=== PATIENT | male | born 1980 | race American Indian/Alaskan Native ===

== ENCOUNTER 2018-01-31 15:24 | Emergency (ER) | payer OTHER ==
[2018-01-31 15:34] VITALS: BP 146/96; PULSE 70; TEMP 99; BMI 31.4
--- NOTE | 2018-01-31 15:36 | PDOC ---
Rapid Medical Evaluation Chief Complaint: Wound Time Seen by Provider: 01/31/18 15:32 Medical Evaluation: Allergies Allergy/AdvReac Type Severity Reaction Status Date / Time No Known Allergies Allergy Verified 01/31/18 15:31 01/31/18 15:33 pt c/o: left outer buttock abscess drained yesterday and placed on keflex which he began last night, Hx DM, doesn't check glucose, pt is a mailman Pt on brief exam: vss, no cellulitis, wound to left outer buttock moist under bandage, Pt ordered for: wound cx, bgm Pt to proceed to the ED Discharge Disposition - Diagnosis Abscess - Referrals Referrals: Donavon Schneider MD [Primary Care Provider] - - Patient Instructions - Post Discharge Activity
--- NOTE | 2018-01-31 16:21 | PDOC ---
History of Present Illness - General Chief Complaint: Wound Stated Complaint: WOUND Time Seen by Provider: 01/31/18 15:32 History Source: Patient Exam Limitations: No Limitations - History of Present Illness Initial Comments: 01/31/18 16:21 she was seen Timing/Duration: unsure Severity: mild Associated Symptoms: reports: fever/chills, headaches Past History - Travel Traveled outside of the country in the last 30 days: No Close contact w/someone who was outside of country & ill: No - Past Medical History Allergies/Adverse Reactions: Allergies Allergy/AdvReac Type Severity Reaction Status Date / Time No Known Allergies Allergy Verified 01/31/18 15:31 Home Medications: Ambulatory Orders Cephalexin Monohydrate [Keflex -] 500 mg PO BID 01/31/18 Losartan Potassium 50 mg PO DAILY 01/31/18 Metformin HCl [Glucophage] 1,000 mg PO ASDIR 01/31/18 Oxycodone HCl/Acetaminophen [Percocet 5-325 mg Tablet -] 1 - 2 tab PO Q4H PRN # 7 tablet MDD 4 01/31/18 Sulfamethoxazole/Trimethoprim [Bactrim *Ds*] 1 each PO BID #14 tablet 01/31/18 Sulfamethoxazole/Trimethoprim [Bactrim *Ds*] 1 each PO BID #14 tablet 01/31/18 COPD: No Diabetes: Yes (NIDM) HTN: Yes - Surgical History Abdominal Surgery: Yes (hernia) Appendectomy: Yes - Immunization History Immunization Up to Date: Yes - Suicide/Smoking/Psychosocial Hx Smoking History: Never smoked Have you smoked in the past 12 months: No Hx Alcohol Use: No Drug/Substance Use Hx: No Substance Use Type: None Review of Systems - Review of Systems Able to Perform ROS?: Yes Is the patient limited Japanese proficient: Yes Constitutional: Yes: Symptoms Reported, See HPI, Malaise. No: Fever HEENTM: Yes: See HPI. No: Symptoms Reported Respiratory: No: Symptoms reported Musculoskeletal: Yes: Symptoms Reported, See HPI Integumentary: Yes: Symptoms Reported, See HPI, Erythema, Lesions Neurological: No: Symptoms reported All Other Systems: Reviewed and Negative *Physical Exam - Vital Signs Last Vital Signs Temp Pulse Resp BP Pulse Ox 99.0 F 70 16 146/96 97 01/31/18 15:32 01/31/18 15:32 01/31/18 15:32 01/31/18 15:32 01/31/18 15:32 - Physical Exam General Appearance: Yes: Nourished, Appropriately Dressed, Apparent Distress, Mild Distress HEENT: positive: VIJAYA, Normal ENT Inspection, TMs Normal, Pharynx Normal Neck: positive: Supple. negative: Lymphadenopathy (R), Lymphadenopathy (L) Respiratory/Chest: positive: Lungs Clear, Normal Breath Sounds Musculoskeletal: positive: Normal Inspection Extremity: positive: Normal Capillary Refill Integumentary: positive: Pale, Other (3 cm erythema with central lesion. Unable to express any purulence/ Induration ~ with tenderness. ) Neurologic: positive: art director II-XII NML intact, Fully Oriented, Alert, Normal Mood/ Affect, Normal Response, Motor Strength 5/5 Moderate Sedation - Procedure Monitoring Vital Signs: Procedure Monitoring Vital Signs Temperature 99.0 F 01/31/18 15:32 Pulse Rate 70 01/31/18 15:32 Respiratory Rate 16 01/31/18 15:32 Blood Pressure 146/96 01/31/18 15:32 O2 Sat by Pulse Oximetry (%) 97 01/31/18 15:32 Medical Decision Making - Medical Decision Making 01/31/18 17:10 RBS; fingerstick 290. .. patient states takes metformin at this time and understands need to folllowup with PMD for re-eval of blood sugars/ and have wound check. 01/31/18 17:11 01/31/18 17:15 *DC/Admit/Observation/Transfer Diagnosis at time of Disposition: Abscess - Discharge Dispostion Disposition: HOME Condition at time of disposition: Stable Decision to Admit order: No - Referrals Referrals: Donavon Schneider MD [Primary Care Provider] - - Patient Instructions Printed Discharge Instructions: DI for Wound Infection Additional Instructions: Rest, keep area elevated. Avoid strenuous activity or exercise until wound is healed Use hot soaks to area to bring more blood to the surface and encourage drainage May change dressings as needed to keep clean - Allow water from shower to wash area thoroughly for 2-3 minutes, and pat dry upon exit of shower and replace dressing. Change his dressing daily until the wound is completely healed. May use Tylenol or Motrin for mild pain relief Use stronger medications as directed and prescribed Continue all medications as prescribed Followup with private physician in 2-3 days for wound check Return to emergency Department for worsening swelling, pain, redness, fevers as needed - Post Discharge Activity Forms/Work/School Notes: Back to Work
== END 2018-01-31 17:09 | disposition home or self-care (01) ==
LOC: JERFT 15:24
DX: L02.31 Cutaneous abscess of buttock (principal); E11.65 Type 2 diabetes mellitus with hyperglycemia; Z79.84 Long term (current) use of oral hypoglycemic drugs; I10 Essential (primary) hypertension
CPT/HCPCS: 82962; 87070; 87186; 87205; 99281-25

== ENCOUNTER 2018-02-02 10:14 | Emergency (ER) | payer OTHER ==
[2018-02-02 10:33] VITALS: BP 140/74; PULSE 88; TEMP 98.2; BMI 31.4
--- NOTE | 2018-02-02 11:07 | PDOC ---
Suture Removal/Wound Check HPI - History of Present Illness Chief Complaint: Revisit,Wound Recheck Stated Complaint: REVISIT, FOLLOW UP Time Seen by Provider: 02/02/18 10:46 History Source: Yes: Patient, Old Records Exam Limitations: Yes: No Limitations Treated at: [facility] ED Date of Last ED visit: 01/31/18 - Previous ED Treatment Antibiotics Prescribed: Yes Past History - Past Medical History Allergies/Adverse Reactions: Allergies Allergy/AdvReac Type Severity Reaction Status Date / Time No Known Allergies Allergy Verified 01/31/18 15:31 Home Medications: Ambulatory Orders Cephalexin Monohydrate [Keflex -] 500 mg PO BID 01/31/18 Losartan Potassium 50 mg PO DAILY 01/31/18 Metformin HCl [Glucophage] 1,000 mg PO ASDIR 01/31/18 Oxycodone HCl/Acetaminophen [Percocet 5-325 mg Tablet -] 1 - 2 tab PO Q4H PRN # 7 tablet MDD 4 01/31/18 Sulfamethoxazole/Trimethoprim [Bactrim *Ds*] 1 each PO BID #14 tablet 01/31/18 Sulfamethoxazole/Trimethoprim [Bactrim *Ds*] 1 each PO BID #14 tablet 01/31/18 COPD: No Diabetes: Yes (NIDM) HTN: Yes - Surgical History Abdominal Surgery: Yes (hernia) Appendectomy: Yes - Immunization History Immunization Up to Date: Yes - Suicide/Smoking/Psychosocial Hx Smoking History: Never smoked Have you smoked in the past 12 months: No Information on smoking cessation initiated: No Hx Alcohol Use: No Drug/Substance Use Hx: No Substance Use Type: None Suture Removal/Wound Check PE - Physical Exam Laceration/Wound Check Symptoms: reports: Pain, Discharge Pain Intensity: 6 Current Severity Level: None Maximum Severity Level: None Pain Localization: None Location of Laceration/Wound: left: Hip Pain Radiation: None *Review of Systems - Review of Systems Able to Perform ROS?: Yes Constitutional: No: Symptoms Reported HEENTM: No: Symptoms Reported Respiratory: No: Symptoms reported Cardiac (ROS): No: Symptoms Reported ABD/GI: No: Symptoms Reported : No: Symptoms Reported Musculoskeletal: No: Symptoms Reported Integumentary: Yes: See HPI Neurological: No: Symptoms reported Endocrine: No: Symptoms Reported Hematologic/Lymphatic: No: Symptoms Reported *Physical Exam - Vital Signs Last Vital Signs Temp Pulse Resp BP Pulse Ox 98.2 F 88 16 140/74 97 02/02/18 10:31 02/02/18 10:31 02/02/18 10:31 02/02/18 10:31 02/02/18 10:31 - Physical Exam General Appearance: Yes: Appropriately Dressed. No: Apparent Distress Respiratory/Chest: positive: Lungs Clear, Normal Breath Sounds. negative: Respiratory Distress, Accessory Muscle Use Cardiovascular: positive: Regular Rhythm, Regular Rate, S1, S2. negative: Edema , Murmur Integumentary: positive: Other (1 cm circular area of erythema with open ulcer to the center of performed. Purulent drainage able to be expressed without difficulty. Culture obtained.) Moderate Sedation - Procedure Monitoring Vital Signs: Procedure Monitoring Vital Signs Temperature 98.2 F 02/02/18 10:31 Pulse Rate 88 02/02/18 10:31 Respiratory Rate 16 02/02/18 10:31 Blood Pressure 140/74 02/02/18 10:31 O2 Sat by Pulse Oximetry (%) 97 02/02/18 10:31 Medical Decision Making - Medical Decision Making 02/02/18 11:04 A/P: 37-year-old male with history of diabetes with abscess to left hip 1 cm circular area of erythema and induration with some centimeter ulcer present to the center of lesion. No fluctuance present Purulent drainage expressed Tender to touch Patient had photographs from previous days and wound appears to be improved from previous days. Discussion with patient regarding wound healing and diabetes. Patient was encouraged to make an appointment with his primary doctor for reevaluation on Tuesday. Was explained to the patient that wound culture will take 2-3 days to have results and patient and call back on Tuesday prior to his PMD appointment for results of culture. Patient is currently taking Keflex and Bactrim for abscess. Wound culture, discharge *DC/Admit/Observation/Transfer Diagnosis at time of Disposition: Wound check, abscess - Discharge Dispostion Disposition: HOME Condition at time of disposition: Stable Decision to Admit order: No - Referrals Referrals: Donavon Schneider MD [Primary Care Provider] - - Patient Instructions Additional Instructions: Continue with all previous treatments including antibiotics and warm soaks. It is very important that she follow up with your primary doctor for tight blood sugar control and reevaluation. The wound culture results will be ready by Fox morning. Please call [phone] for culture results. Return to emergency department for any concerns. - Post Discharge Activity
--- NOTE | 2018-02-03 09:46 | PDOC ---
Patient Follow-up (Call Back) - Post ED Follow - Up Condition at time of discharge: Stable Disposition at time of original discharge: HOME Reason for Call Back: Abnwl. Microbiology (Pt presented for a wound check, wound culture grew MSSA. Pt on bactrim and keflex. no further work up is needed at this time.)
== END 2018-02-02 11:12 | disposition home or self-care (01) ==
LOC: JERFT 10:14
DX: L02.31 Cutaneous abscess of buttock (principal); E11.9 Type 2 diabetes mellitus without complications; Z79.84 Long term (current) use of oral hypoglycemic drugs; I10 Essential (primary) hypertension
CPT/HCPCS: 87070; 87186; 87205; 99281-25

== ENCOUNTER 2018-03-19 17:57 | Emergency (ER) | payer OTHER ==
[2018-03-19 18:22] VITALS: BMI 32.1
--- NOTE | 2018-03-19 18:31 | PDOC ---
History of Present Illness - General Chief Complaint: Pain Stated Complaint: COUGH, ABD MUSCLE PAIN, TESTICLE PAIN Time Seen by Provider: 03/19/18 18:02 - History of Present Illness Initial Comments: 03/19/18 18:30 37 yo M with h/o DM, GERD, HTN, appendectomy, hernia repair, who p/w LLQ abdominal pain, and left sided testicular pain. Patient reports acute onset of spasmodic, pressure-type, left lower quadrant abdominal pain beginning yesterday. Pain worse with cough, straining, lifting. patient endorses 1 month of dry non productive cough x 1 month. Also endorses one day of sharp, shooting , left testicular pain with no identifiable triggers or alleviators, now resolved. Endorses 2 weeks of intermittent soft stools, and loose stools, with absent BPR. States that 2 weeks ago he strained his abdominal musculature from heavy lifting.Denies OTC analgesia. Patient denies RINCON, wheezing, vision change, palpitations, leg pain/swelling, N/V , F,C, CP, SOB, urinary complaints, hematuria, BPR, constipation, lightheadedness, weakness, sensory changes. PMHx: as noted above Surgical: Appendectomy, Hernia repair ROS: as noted SHx: Denies Etoh, IVDA, tobacco use. Denies h/o SIT's. Sexually active with one partner. Allergies: NKDA Past History - Past Medical History Allergies/Adverse Reactions: Allergies Allergy/AdvReac Type Severity Reaction Status Date / Time No Known Allergies Allergy Verified 01/31/18 15:31 Home Medications: Ambulatory Orders Losartan Potassium 50 mg PO DAILY 01/31/18 Albuterol Sulfate Inhaler - [Ventolin Hfa Inhaler -] 2 inh PO Q6H PRN 03/19/18 Azithromycin [Zithromax -] 250 mg PO UTDICT 03/19/18 Benzonatate [Tessalon Pearls -] 100 mg PO TID PRN 03/19/18 Fluticasone Prop 0.05% Nasal [Flonase -] 1 - 2 spray NS BID PRN 03/19/18 Metformin HCl [Glucophage] 500 mg PO BID 03/19/18 COPD: No Diabetes: Yes (NIDDM NON-COMPLIANT) HTN: Yes (NON-COMPLIANT) Other medical history: ABDOMINAL HERNIAS - Surgical History Abdominal Surgery: Yes (abdominal hernia) Appendectomy: Yes - Immunization History Immunization Up to Date: Yes - Suicide/Smoking/Psychosocial Hx Smoking History: Never smoked Have you smoked in the past 12 months: No Hx Alcohol Use: Yes (OCCASIONAL) Drug/Substance Use Hx: No Substance Use Type: None Review of Systems - Review of Systems Comments:: 03/19/18 18:31 GENERAL/CONSTITUTIONAL: No fever or chills. No weakness. HEAD, EYES, EARS, NOSE AND THROAT: No change in vision. No ear pain or discharge. No sore throat. CARDIOVASCULAR: No chest pain or shortness of breath RESPIRATORY: No cough, wheezing, or hemoptysis. GASTROINTESTINAL: + Abdominal pain. No nausea, vomiting, constipation. GENITOURINARY: + left sided testicular pain. No dysuria, frequency, or change in urination. MUSCULOSKELETAL: No joint or muscle swelling or pain. No neck or back pain. SKIN: No rash NEUROLOGIC: No headache, vertigo, loss of consciousness, or change in strength/ sensation. ENDOCRINE: No increased thirst. No abnormal weight change HEMATOLOGIC/LYMPHATIC: No anemia, easy bleeding, or history of blood clots. ALLERGIC/IMMUNOLOGIC: No hives or skin allergy. *Physical Exam - Vital Signs Last Vital Signs Temp Pulse Resp BP Pulse Ox 98.0 F 78 18 128/90 97 03/19/18 17:59 03/19/18 17:59 03/19/18 17:59 03/19/18 17:59 03/19/18 17:59 - Physical Exam Comments: 03/19/18 18:31 GENERAL: Awake, alert, and fully oriented, in no acute distress HEAD: No signs of trauma, normocephalic, atraumatic EYES: PERRLA, EOMI, sclera anicteric, conjunctiva clear ENT: Hearing grossly normal, nares patent, oropharynx clear without exudates. Moist mucosa NECK: Normal ROM, supple, no lymphadenopathy, JVD, or masses LUNGS: No distress, speaks full sentences, clear to auscultation bilaterally HEART: Regular rate and rhythm, normal S1 and S2, no murmurs, rubs or gallops, peripheral pulses normal and equal bilaterally. ABDOMEN: + Left sided lower quadrant abdominal pain. Soft, portruberant, normoactive bowel sounds. No guarding, no rebound. No masses. Neg CVA ttp. GENITOURINARY: Nml appearing external genitalia. + left sided scortal/ testicular ttp diffusely. Nml cremasteric reflex. Absent skin change, lesions, inguinal lypmhadenopathy, or bulging with valsalva. Absewnt perianal skin change. EXTREMITIES : Normal inspection, Normal range of motion, no edema. No clubbing or cyanosis. SKIN: Warm, Dry, normal turgor, no rashes or lesions noted Moderate Sedation - Procedure Monitoring Vital Signs: Procedure Monitoring Vital Signs Temperature 98.0 F 03/19/18 17:59 Pulse Rate 78 03/19/18 17:59 Respiratory Rate 18 03/19/18 17:59 Blood Pressure 128/90 03/19/18 17:59 O2 Sat by Pulse Oximetry (%) 97 03/19/18 17:59 Medical Decision Making - Medical Decision Making 03/19/18 18:55 37 yo M with h/o DM, GERD, HTN, appendectomy, hernia repair, who p/w crampy LLQ abdominal pain x 1 day, and left sided testicular pain. VSS, AF, A&Ox3. + left sided scortal/testicular ttp diffusely, and LLQ abdominal ttp. Physical exam otherwise unremarkable. Will consider GI pathology (Diverticulitis, hernia, colitis), Renal ( nephrolithiaisis, renal colic, cystitis), Testicular pathology ( testicular torsion, epididymitis, orchitis), MSK related pain. ED Course: CBC, CMP, UA, Ucx. CT AP IV CON TESTICULAr/SCROTAL U/S 03/19/18 18:58 Patient VSS, pain controlled. Signed out to night team. Pending labs, imaging, dispo. *DC/Admit/Observation/Transfer Diagnosis at time of Disposition: Colicky LLQ abdominal pain, Left testicular pain - Discharge Dispostion Condition at time of disposition: Stable - Referrals Referrals: Donavon Schneider MD [Primary Care Provider] - - Patient Instructions Printed Discharge Instructions: DI for Abdominal Pain-Adult Additional Instructions: Please return to the emergency department with any new or worsening symptoms or concerns. Please follow up with your primary care physician within 72 hours. - Post Discharge Activity - Attestations Physician Attestion: 03/19/18 18:59 I attest to the information provided in this note.
[2018-03-19] MEDS ORDERED: ACETAMINOPHEN 325 MG TABLET (FP) PO ONE (18:45)
[2018-03-19] MEDS ORDERED: KETOROLAC TROMETHAMINE 15 MG/ML VIAL IVPUSH ONE (19:01)
--- NOTE | 2018-03-19 19:01 | PDOC ---
Attending Attestation - Resident Resident Name: Mayur Vickers - ED Attending Attestation I have performed the following: I have examined & evaluated the patient, The case was reviewed & discussed with the resident, I agree w/resident's findings & plan - HPI HPI: 03/19/18 18:59 37 yo M with h/o DM, GERD, HTN, appendectomy, hernia repair, who p/w LLQ abdominal pain, and left sided testicular pain. Patient reports acute onset of spasmodic, pressure-type, left lower quadrant abdominal pain beginning yesterday. exacerbated by movement, turning and straining, coughing. +loose nonblood BM lately. no n/v/d. 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 +left testicular pain, no swelling. denies recent sexual intercourse, monogamous with . +urinary frequency; no dysuria, urgency or hematuria/pain. no back pain, f/c, cp, sob, dizziness. no meds taken for pain. - Physicial Exam PE: 03/19/18 19:02 NAD, PERRL, EOMI, MMM, nl conjunctiva, anicteric; neck supple. lungs clear, RRR , abdomen soft +LLQ tenderness with guarding; no rebound. PETER x4, no focal neuro deficits. No peripheral edema. normal color for ethnicity, WWP. Male (with resident): normal external genitalia, no lesions, normal testicular lie, no scrotal or testicular edema +left testicular tenderness.. no hernia. - Medical Decision Making 03/19/18 19:01 hpi as documented, vitals wnl. Pain in LLQ. no acute distress otherwise. no fevers. DDx abdominal pain: Renal colic, ureterolithiasis. biliary colic, metabolic/ electrolyte derangements. GERD, PUD, esophageal spasm, pancreatitis, hepatitis, constipation, colitis, UTI, pyelonephritis, hernia, diverticulitis, muscle strain/abdominal rectus strain analgesia with tylenol/toradol. labs and lytes pending CT a/p to r/o diverticulitis US scrotum/testicular vs renal to r/o fluid/torsion given testicular pain on exam, kidney stone/hydro respectively.. s./o to Dr Mead pending imaging 03/19/18 19:03
[2018-03-19] MEDS ORDERED: ACETAMINOPHEN 325 MG TABLET (FP) ONE (19:14)
[2018-03-19] MEDS ORDERED: KETOROLAC TROMETHAMINE 15 MG/ML VIAL ONE (19:14)
[2018-03-19 19:16] LABS: EOS % 1.6 % (0-4.5); HEMATOCRIT 45.7 % (35.4-49); HEMOGLOBIN 15.6 GM/dl (11.7-16.9); LYMPH % 29.2 % (8-40); MCHC 34.3 g/dl (32.0-35.9); MEAN CELL VOLUME 87.5 fl (80-96); MEAN PLT VOLUME 9.6 fl (7.5-11.1); MONO % 8.1 % (3.8-10.2); NEUT % 60.1 % (42.8-82.8); PLATELET COUNT 254 K/MM3 (134-434); RBC 5.22 M/mm3 (4.00-5.60); RDW 11.9 % (11.9-15.9); WHITE BLOOD COUNT 12.6 K/mm3 (4.0-10.8)
[2018-03-19 19:17] LABS: PH,URINE 5.5 (4.5-8); URINE APPEARANCE Clear; URINE BILIRUBIN Negative (NEGATIVE); URINE COLOR Yellow; URINE GLUCOSE (UA) 2+ (NEGATIVE); URINE KETONE Trace (NEGATIVE); URINE LEUK ESTERASE Negative (NEGATIVE); URINE NITRITE Negative (NEGATIVE); URINE PROTEIN Negative (NEGATIVE); URINE UROBILINOGEN 0.2 (0.2-1.0)
[2018-03-19 19:32] LABS: ALBUMIN 4.2 g/dl (3.5-5.0); ALK PHOS 78 U/L (32-92); ANION GAP 11 MMOL/L (8-16); BILIRUBIN,TOTAL 0.5 mg/dl (0.2-1.0); BLOOD UREA NITROGEN 18 mg/dl (7-18); CALCIUM 9.5 mg/dl (8.4-10.2); CHLORIDE 99 mmol/L (98-107); CO2 25 mmol/L (22-28); CREATININE 0.9 mg/dl (0.6-1.3); GLUCOSE,RANDOM 299 mg/dl (74-106); POTASSIUM 3.8 mmol/L (3.5-5.1); SGOT/AST 39 U/L (10-42); SGPT/ALT 64 U/L (10-40); SODIUM 135 mmol/L (136-145); TOT PROT 7.4 g/dl (6.4-8.3)
[2018-03-19 19:34] LABS: URINE RBC 0-2 /hpf (0-3); URINE WBC 0-2 (0-2)
[2018-03-19] MEDS ORDERED: INSULIN REGULAR HUMAN 100 UNITS/ML *VIAL IVPUSH ONE (19:57)
[2018-03-19] MEDS ORDERED: INSULIN REGULAR HUMAN 100 UNITS/ML *VIAL ONE (19:59)
[2018-03-19 20:34] VITALS: BP 137/90; PULSE 81; TEMP 98.4
[2018-03-19] MEDS ORDERED: HEMOQUE TEST 1 EACH EACH ONE (20:44)
--- NOTE | 2018-03-19 21:33 | PDOC ---
*Physical Exam - Vital Signs Last Vital Signs Temp Pulse Resp BP Pulse Ox 98.4 F 81 18 137/90 96 03/19/18 20:31 03/19/18 20:31 03/19/18 20:31 03/19/18 20:31 03/19/18 20:31 ED Treatment Course - LABORATORY CBC & Chemistry Diagram: 03/19/18 19:00 03/19/18 19:00 - ADDITIONAL ORDERS Additional order review: Laboratory Results 03/19/18 03/19/18 19:00 19:00 Sodium 135 L Potassium 3.8 Chloride 99 Carbon Dioxide 25 Anion Gap 11 BUN 18 Creatinine 0.9 Creat Clearance w eGFR > 60 Random Glucose 299 H Calcium 9.5 Total Bilirubin 0.5 AST 39 ALT 64 H Alkaline Phosphatase 78 Total Protein 7.4 Albumin 4.2 Urine Color Yellow Urine Appearance Clear Urine pH 5.5 Ur Specific [place] 1.020 Urine Protein Negative Urine Glucose (UA) 2+ H Urine Ketones Trace Urine Blood Trace-intact H Urine Nitrite Negative Urine Bilirubin Negative Urine Urobilinogen 0.2 Ur Leukocyte Esterase Negative Urine RBC 0-2 Urine WBC 0-2 03/19/18 19:00 RBC 5.22 MCV 87.5 MCHC 34.3 RDW 11.9 MPV 9.6 Neutrophils % 60.1 Lymphocytes % 29.2 Monocytes % 8.1 Eosinophils % 1.6 Basophils % 1.0 - RADIOLOGY Radiology Studies Ordered: Category Date Time Status KIDNEY / RENAL US [US] Stat Ultrasound 03/19/18 19:15 Taken - Medications Given in the ED: ED Medications Discontinued Medications Generic Name Dose Route Start Last Admin Trade Name Freq PRN Reason Stop Dose Admin Acetaminophen 650 mg 03/19/18 18:45 03/19/18 20:03 Tylenol - PO 03/19/18 18:46 Not Given ONCE ONE Insulin Human Regular 8 units 03/19/18 19:57 03/19/18 20:00 Novolin R Vial *For Ivpush Or Iv Drip Only* IVPUSH 03/19/18 19:58 8 units ONCE ONE Administration Ketorolac Tromethamine 15 mg 03/19/18 19:01 03/19/18 19:50 Toradol Injection - IVPUSH 03/19/18 19:02 15 mg ONCE ONE Administration Progress Note - Progress Note Progress Note: Care of this patient was transferred to de from Dr. Jensen at 1900 hrs. Patient is a 37-year-old male who comes in complaining of left sided and left testicular pain. Patient has a workup that was initiated by . Workup includes labs, renal and scrotal ultrasound and abdominal CT 21:00 Patient's scrotal and renal ultrasound are negative for any acute pathology Patient's CAT scan of her nose abdomen and pelvis shows some incidental findings of some hepatic steatosis, splenomegaly of is mild small umbilical hernia, small bowel inguinal hernias otherwise no acute intra-abdominal pathology. Patient given copies of his reports and discharged home. Patient given a note for no work tomorrow and told follow-up with his primary care doctor if unable to work tomorrow *DC/Admit/Observation/Transfer Diagnosis at time of Disposition: Colicky LLQ abdominal pain, Left testicular pain - Discharge Dispostion Disposition: HOME Condition at time of disposition: Stable - Referrals Referrals: Donavon Schneider MD [Primary Care Provider] - - Patient Instructions Printed Discharge Instructions: DI for Abdominal Pain-Adult Additional Instructions: You were given copies of your workup, take the copies of your workup with you when you go see her doctor. Tylenol or Motrin as needed for the pain Return to the emergency department immediately with ANY new, persistent or worsening symptoms. Continue any medications as previously prescribed by your physician. You should follow up with your primary doctor as soon as possible regarding today's emergency department visit. . Please make sure your doctor reviews the results of your emergency evaluation. Thank you for coming to the Emergency Department today for your care. It was a pleasure to see you today. Please note that your evaluation is INCOMPLETE until you follow-up with your doctor. - Post Discharge Activity Forms/Work/School Notes: Back to Work
== END 2018-03-19 21:37 | disposition home or self-care (01) ==
LOC: FER 17:57
PROC: 3E033VG Introduction of Insulin into Peripheral Vein, Percutaneous Approach (ICD-10-PCS; principal; 2018-03-19)
PROC: 3E0333Z Introduction of Anti-inflammatory into Peripheral Vein, Percutaneous Approach (ICD-10-PCS; 2018-03-19)
DX: R10.32 Left lower quadrant pain (principal); N50.812 Left testicular pain
CPT/HCPCS: 36415; 74177-TC; 76775-TC; 76870-TC; 80053; 81003; 81015; 82962; 85025; 87086; 99285-25

== ENCOUNTER 2018-04-11 14:09 | Emergency (ER) | payer OTHER ==
[2018-04-11 14:14] VITALS: BP 157/91; PULSE 82; TEMP 99; BMI 32.1
[2018-04-11] MEDS ORDERED: SODIUM CHLORIDE 1,000 ML IV STA ×2 (15:04→15:27)
[2018-04-11 15:25] LABS: URINE APPEARANCE Clear; URINE BILIRUBIN Negative (NEGATIVE); URINE COLOR Amber; URINE GLUCOSE (UA) 2+ (NEGATIVE); URINE KETONE Negative (NEGATIVE); URINE LEUK ESTERASE Negative (NEGATIVE); URINE NITRITE Negative (NEGATIVE); URINE PROTEIN Negative (NEGATIVE); URINE UROBILINOGEN 0.2 (0.2-1.0)
[2018-04-11] MEDS ORDERED: SULFAMETHOXAZOLE/TRIMETHOPRIM 800MG/160MG D.S. TABLET PO ONE (15:27)
[2018-04-11 15:30] LABS: BASO % 0.6 % (0-2.0); EOS % 1.6 % (0-4.5); HEMATOCRIT 48.1 % (35.4-49); HEMOGLOBIN 16.3 GM/dl (11.7-16.9); LYMPH % 25.9 % (8-40); MCH 29.9 pg (25.7-33.7); MCHC 33.9 g/dl (32.0-35.9); MEAN CELL VOLUME 88.3 fl (80-96); MEAN PLT VOLUME 10.2 fl (7.5-11.1); MONO % 7.9 % (3.8-10.2); PLATELET COUNT 236 K/MM3 (134-434); RBC 5.45 M/mm3 (4.00-5.60); WHITE BLOOD COUNT 11.5 K/mm3 (4.0-10.8)
[2018-04-11 15:36] LABS: ALBUMIN 4.4 g/dl (3.4-5.0); ALK PHOS 87 U/L (45-117); ANION GAP 10 MMOL/L (8-16); BILIRUBIN,TOTAL 0.5 mg/dl (0.2-1); BLOOD UREA NITROGEN 19 mg/dl (7-18); CALCIUM 9.3 mg/dl (8.5-10); CHLORIDE 95 mmol/L (98-107); CO2 25 mmol/L (21-32); CREATININE 0.9 mg/dl (0.55-1.3); POTASSIUM 4.2 mmol/L (3.5-5.1); SGOT/AST 33 U/L (15-37); SGPT/ALT 63 U/L (13-61); SODIUM 130 mmol/L (136-145); TOT PROT 7.5 g/dl (6.4-8.2)
[2018-04-11 15:41] LABS: GLUCOSE,RANDOM 376 mg/dl (74-106)
[2018-04-11] MEDS ORDERED: SULFAMETHOXAZOLE/TRIMETHOPRIM 800MG/160MG D.S. TABLET ONE (15:44)
[2018-04-11] MEDS ORDERED: ACETAMINOPHEN INJECTION 100 ML IVPB ONE (15:47)
[2018-04-11 15:55] LABS: URINE RBC 0-2 /hpf (0-3)
--- NOTE | 2018-04-11 15:59 | PDOC ---
History of Present Illness - History of Present Illness Initial Comments: 04/11/18 16:14 The patient is a 37 year old male with a past medical history of type 2 diabetes , hypertension (on Losartan 50mg), and prior MRSA in abscess on left hip who presents to the emergency department for evaluation of lightheadedness and left hip abscess. Patient reports mild lightheadedness after eating a salad this afternoon. He also reports worsening left hip abscess which started 2 days ago. Patient reports associated symptoms of polydipsia, urinary frequency, and diffuse muscle weakness over the last 2 weeks. He states he has not been compliant with his metformin regiment and reports intermittent episodes of nausea without vomiting over the last 2 weeks. Patient states he visits the ED today due to concern for abscess developing MRSA as it has in the past. The patient denies chest pain, shortness of breath, headache, and dizziness. Denies fevers, chills, nausea, vomiting, diarrhea, and constipation. Allergies: No known allergies Social History: No reported alcohol, cigarette, or drug use. Surgical History: Appendectomy, hernia, lymphadenectomy PCP: Dr. Donavon Schneider <Glynn Dubon - Last Filed: 04/11/18 16:14> - General History Source: Patient Exam Limitations: No Limitations <Husam López - Last Filed: 04/11/18 16:36> - General Chief Complaint: Blood Sugar Problem Stated Complaint: LIGHTHEADED, POLYURIA/DIPSIA, ABSCESS Time Seen by Provider: 04/11/18 14:36 Past History <Glynn Dubon - Last Filed: 04/11/18 16:14> - Past Medical History COPD: No Diabetes: Yes HTN: Yes - Surgical History Abdominal Surgery: Yes (HERNIA) Appendectomy: Yes - Immunization History Immunization Up to Date: Yes - Suicide/Smoking/Psychosocial Hx Smoking History: Never smoked Have you smoked in the past 12 months: No Information on smoking cessation initiated: No Hx Alcohol Use: No Drug/Substance Use Hx: No Substance Use Type: None <Husam López - Last Filed: 04/11/18 16:36> - Past Medical History Allergies/Adverse Reactions: Allergies Allergy/AdvReac Type Severity Reaction Status Date / Time No Known Allergies Allergy Verified 04/11/18 14:11 Home Medications: Ambulatory Orders Losartan Potassium 50 mg PO DAILY 01/31/18 Metformin HCl [Glucophage] 1,000 mg PO HS 03/19/18 Sulfamethoxazole/Trimethoprim [Bactrim Ds -] 1 tab PO BID #14 tablet 04/11/18 Review of Systems - Review of Systems Comments:: GENERAL/CONSTITUTIONAL: No fever or chills. No weakness. HEAD, EYES, EARS, NOSE AND THROAT: No change in vision. No ear pain or discharge. No sore throat. CARDIOVASCULAR: No chest pain or shortness of breath. RESPIRATORY: No cough, wheezing, or hemoptysis. GASTROINTESTINAL: No nausea, vomiting, diarrhea or constipation. GENITOURINARY: (+)urinary frequency. No dysuria or hematuria. MUSCULOSKELETAL: (+)Left hip abscess. No joint or muscle swelling or pain. No neck or back pain. SKIN: No rash NEUROLOGIC: (+)Muscle weakness. No headache, vertigo, loss of consciousness, or change in strength/sensation. ENDOCRINE: (+)polydipsia. No abnormal weight change. HEMATOLOGIC/LYMPHATIC: No anemia, easy bleeding, or history of blood clots. ALLERGIC/IMMUNOLOGIC: No hives or skin allergy. <Glynn Dubon - Last Filed: 04/11/18 16:14> *Physical Exam - Vital Signs Last Vital Signs Temp Pulse Resp BP Pulse Ox 99 F 82 18 157/91 99 04/11/18 14:09 04/11/18 14:09 04/11/18 14:09 04/11/18 14:09 04/11/18 14:09 - Physical Exam Comments: GENERAL: Awake, alert, and fully oriented, in no acute distress HEAD: No signs of trauma EYES: PERRLA, EOMI, sclera anicteric, conjunctiva clear ENT: (+)Dry mucous membranes. NECK: Normal ROM, supple, no JVD, or masses LUNGS: Breath sounds equal, clear to auscultation bilaterally. No wheezes, and no crackles HEART: Regular rate and rhythm, normal S1 and S2, no murmurs, rubs or gallops ABDOMEN: Soft, nontender. No guarding, no rebound. No masses EXTREMITIES: Normal range of motion, no edema. No clubbing or cyanosis. No cords, erythema, or tenderness NEUROLOGICAL: Cranial nerves II through XII grossly intact. Normal speech, normal gait SKIN: (+)2x2cm erythematous,mildly tender, indurated but no fluctuance overlying the left hip. Warm, Dry. <Glnyn Dubon - Last Filed: 04/11/18 16:14> - Vital Signs Last Vital Signs Temp Pulse Resp BP Pulse Ox 99 F 82 18 157/91 99 04/11/18 14:09 04/11/18 14:09 04/11/18 14:09 04/11/18 14:09 04/11/18 14:09 <Husam López - Last Filed: 04/11/18 16:36> Moderate Sedation - Procedure Monitoring Vital Signs: Procedure Monitoring Vital Signs Temperature 99 F 04/11/18 14:09 Pulse Rate 82 04/11/18 14:09 Respiratory Rate 18 04/11/18 14:09 Blood Pressure 157/91 04/11/18 14:09 O2 Sat by Pulse Oximetry (%) 99 04/11/18 14:09 <Glynn Dubon - Last Filed: 04/11/18 16:14> - Procedure Monitoring Vital Signs: Procedure Monitoring Vital Signs Temperature 99 F 04/11/18 14:09 Pulse Rate 82 04/11/18 14:09 Respiratory Rate 18 04/11/18 14:09 Blood Pressure 157/91 04/11/18 14:09 O2 Sat by Pulse Oximetry (%) 99 04/11/18 14:09 <Husam López - Last Filed: 04/11/18 16:36> Heart Score/ECG Review #1 ECG reviewed & interpreted by me at: 16:10 04/11/18 16:13 NSR 76, no std/deny, normal axis, normal intervals, QTC 443 msec <Husam López - Last Filed: 04/11/18 16:36> ED Treatment Course - LABORATORY CBC & Chemistry Diagram: 04/11/18 15:10 04/11/18 15:10 - ADDITIONAL ORDERS Additional order review: Laboratory Results 04/11/18 04/11/18 04/11/18 15:10 15:10 15:10 Sodium 130 L Potassium 4.2 Chloride 95 L Carbon Dioxide 25 Anion Gap 10 BUN 19 H Creatinine 0.9 Creat Clearance w eGFR > 60 POC Glucometer Random Glucose 376 H* Calcium 9.3 Total Bilirubin 0.5 AST 33 ALT 63 H Alkaline Phosphatase 87 Troponin I < 0.03 Total Protein 7.5 Albumin 4.4 Urine Color Patti Urine Appearance Clear Urine pH 5.0 Ur Specific Ethel 1.015 Urine Protein Negative Urine Glucose (UA) 2+ H Urine Ketones Negative Urine Blood Trace-lysed H Urine Nitrite Negative Urine Bilirubin Negative Urine Urobilinogen 0.2 Ur Leukocyte Esterase Negative Urine RBC 0-2 04/11/18 14:38 Sodium Potassium Chloride Carbon Dioxide Anion Gap BUN Creatinine Creat Clearance w eGFR POC Glucometer 395 Random Glucose Calcium Total Bilirubin AST ALT Alkaline Phosphatase Troponin I Total Protein Albumin Urine Color Urine Appearance Urine pH Ur Specific Ethel Urine Protein Urine Glucose (UA) Urine Ketones Urine Blood Urine Nitrite Urine Bilirubin Urine Urobilinogen Ur Leukocyte Esterase Urine RBC 04/11/18 04/11/18 15:10 14:38 RBC 5.45 MCV 88.3 MCHC 33.9 RDW 12.0 MPV 10.2 Neutrophils % 64.0 Lymphocytes % 25.9 Monocytes % 7.9 Eosinophils % 1.6 Basophils % 0.6 POC Glucometer 395 - Medications Given in the ED: ED Medications Discontinued Medications Generic Name Dose Route Start Last Admin Trade Name Freq PRN Reason Stop Dose Admin Sodium Chloride 1,000 mls @ 1,000 mls/hr 04/11/18 15:04 04/11/18 15:00 Normal Saline - IV 04/11/18 16:03 1,000 mls/hr ASDIR STA Administration Trimethoprim/Sulfamethoxazole 1 each 04/11/18 15:27 04/11/18 15:47 Bactrim Ds - PO 04/11/18 15:28 1 each ONCE ONE Administration <Glynn Dubon - Last Filed: 04/11/18 16:14> - LABORATORY CBC & Chemistry Diagram: 04/11/18 15:10 04/11/18 15:10 - ADDITIONAL ORDERS Additional order review: Laboratory Results 04/11/18 04/11/18 04/11/18 15:10 15:10 15:10 Sodium 130 L Potassium 4.2 Chloride 95 L Carbon Dioxide 25 Anion Gap 10 BUN 19 H Creatinine 0.9 Creat Clearance w eGFR > 60 POC Glucometer Random Glucose 376 H* Calcium 9.3 Total Bilirubin 0.5 AST 33 ALT 63 H Alkaline Phosphatase 87 Troponin I < 0.03 Total Protein 7.5 Albumin 4.4 Urine Color Patti Urine Appearance Clear Urine pH 5.0 Ur Specific Ethel 1.015 Urine Protein Negative Urine Glucose (UA) 2+ H Urine Ketones Negative Urine Blood Trace-lysed H Urine Nitrite Negative Urine Bilirubin Negative Urine Urobilinogen 0.2 Ur Leukocyte Esterase Negative 04/11/18 14:38 Sodium Potassium Chloride Carbon Dioxide Anion Gap BUN Creatinine Creat Clearance w eGFR POC Glucometer 395 Random Glucose Calcium Total Bilirubin AST ALT Alkaline Phosphatase Troponin I Total Protein Albumin Urine Color Urine Appearance Urine pH Ur Specific Ethel Urine Protein Urine Glucose (UA) Urine Ketones Urine Blood Urine Nitrite Urine Bilirubin Urine Urobilinogen Ur Leukocyte Esterase 04/11/18 04/11/18 15:10 14:38 RBC 5.45 MCV 88.3 MCHC 33.9 RDW 12.0 MPV 10.2 Neutrophils % 64.0 Lymphocytes % 25.9 Monocytes % 7.9 Eosinophils % 1.6 Basophils % 0.6 POC Glucometer 395 - Medications Given in the ED: ED Medications Discontinued Medications Generic Name Dose Route Start Last Admin Trade Name Freq PRN Reason Stop Dose Admin Trimethoprim/Sulfamethoxazole 1 each 04/11/18 15:27 04/11/18 15:47 Bactrim Ds - PO 04/11/18 15:28 1 each ONCE ONE Administration <Husam López - Last Filed: 04/11/18 16:36> Medical Decision Making - Medical Decision Making 04/11/18 15:51 A portion of this note was written by my scribe, under my supervision. Vital Signs Temp Pulse Resp BP Pulse Ox 99 F 82 18 157/91 99 04/11/18 14:09 04/11/18 14:09 04/11/18 14:09 04/11/18 14:09 04/11/18 14:09 37 year old male c/ pmh DMII (metformin 1000mg BID), HTN p/w lightheadedness and small skin infection over left hip. The patient has a known hx of MRSA skin infections. Has had taken bactrim prior. Last several days, he's been endorsing feeling lightheadedness, generalized weakness, feeling "off". Noted that he was having polydipsia and polyuria despite adherence to his medications. Also started to note a small "red" tender bump to the left hip but no fluctuance. States that this was like his prior MRSA infection. States that this coincided with his elevated glucose. No fevers, chills. I suspect that the patient's cellulitis (not abscess) is driving patient's hyperglycemia. Blood work demonstrates no evidence of DKA. Will treat with bactrim BID x 7 days. I suspect that the lightheadedness is due to dehydration 2/2 hyperglycemia. Once cellulitis is improved, I suspect that the hyperglycemia will improve. Will give IVF and have patient follow up with PMD. CBC, BMP 04/11/18 15:10 04/11/18 15:10 CMP Sodium 130 mmol/L (136-145) L 04/11/18 15:10 Potassium 4.2 mmol/L (3.5-5.1) 04/11/18 15:10 Chloride 95 mmol/L (98-107) L 04/11/18 15:10 Carbon Dioxide 25 mmol/L (21-32) 04/11/18 15:10 Anion Gap 10 MMOL/L (8-16) 04/11/18 15:10 BUN 19 mg/dl (7-18) H 04/11/18 15:10 Creatinine 0.9 mg/dl (0.55-1.3) 04/11/18 15:10 Creat Clearance w eGFR > 60 (>60) 04/11/18 15:10 POC Glucometer 395 UNITS (80-120) 04/11/18 14:38 Random Glucose 376 mg/dl (74-106) H* 04/11/18 15:10 Calcium 9.3 mg/dl (8.5-10) 04/11/18 15:10 Total Bilirubin 0.5 mg/dl (0.2-1) 04/11/18 15:10 AST 33 U/L (15-37) 04/11/18 15:10 ALT 63 U/L (13-61) H 04/11/18 15:10 Alkaline Phosphatase 87 U/L (45-117) 04/11/18 15:10 Troponin I < 0.03 ng/ml (0.00-0.05) 04/11/18 15:10 Total Protein 7.5 g/dl (6.4-8.2) 04/11/18 15:10 Albumin 4.4 g/dl (3.4-5.0) 04/11/18 15:10 04/11/18 16:31 Pt received 2L of IVF and reports feeling better. Pt requests a PMD. Will refer him to a PMD and an flavoring maker. <Husam López - Last Filed: 04/11/18 16:36> *DC/Admit/Observation/Transfer - Attestations Scribe Attestion: Documentation prepared by Glynn Dubon, acting as biomedical equipment support specialist for Husam López MD. <Glynn Dubon - Last Filed: 04/11/18 16:14> - Discharge Dispostion Decision to Admit order: No <Husam López - Last Filed: 04/11/18 16:36> Diagnosis at time of Disposition: Hyperglycemia Cellulitis Qualifiers: Site of cellulitis: unspecified site Qualified Code(s): L03.90 - Cellulitis, unspecified - Discharge Dispostion Disposition: HOME Condition at time of disposition: Stable - Prescriptions Prescriptions: Sulfamethoxazole/Trimethoprim [Bactrim Ds -] 1 tab PO BID #14 tablet - Referrals Referrals: Donavon Schneider MD [Primary Care Provider] - Willie Ibrahim MD [Staff Physician] - Ming Young MD [Staff Physician] - - Patient Instructions Printed Discharge Instructions: DI for Hyperglycemia -- Adult, DI for Cellulitis -- Adult Additional Instructions: Please drink plenty of fluids and rest. It is possible that your infection may be driving your elevated blood sugars. Please continue to take metformin as prescribed. Please take your antibiotics (bactrim every 12 hours x 7 days) as prescribed. If your sugars continue to remain elevated, you may need to have your diabetes medication adjusted. Please follow up with your doctor. - Post Discharge Activity
--- NOTE | 2018-04-12 11:36 | EKG ---
Test Reason : Blood Pressure : / mmHG Vent. Rate : 076 BPM Atrial Rate : 076 BPM P-R Int : 170 ms QRS Dur : 106 ms QT Int : 394 ms P-R-T Axes : 065 085 039 degrees QTc Int : 443 ms NORMAL SINUS RHYTHM NORMAL ECG WHEN COMPARED WITH ECG OF 23-AUG-2017 09:42, NO SIGNIFICANT CHANGE WAS FOUND Confirmed by HIMANSHU SALGADO MD ([id number]) on 04/12/2018 11:36:18 AM Referred By: DR ROY Confirmed By:HIMANSHU SALGADO MD
== END 2018-04-11 17:00 | disposition home or self-care (01) ==
LOC: FER 14:09
PROC: 3E0337Z Introduction of Electrolytic and Water Balance Substance into Peripheral Vein, Percutaneous Approach (ICD-10-PCS; principal; 2018-04-11)
DX: E11.65 Type 2 diabetes mellitus with hyperglycemia (principal); L03.90 Cellulitis, unspecified; I10 Essential (primary) hypertension; Z86.14 Personal history of Methicillin resistant Staphylococcus aureus infection; Z79.84 Long term (current) use of oral hypoglycemic drugs
CPT/HCPCS: 36415; 80053; 81003; 81015; 82962; 84484; 85025; 93005; 96360; 99285-25; J7030

== ENCOUNTER 2018-05-02 21:40 | Observation (INO) | payer OTHER ==
[2018-05-02 21:55] VITALS: BMI 36.9
--- NOTE | 2018-05-02 22:28 | PDOC ---
History of Present Illness - General History Source: Patient Exam Limitations: No Limitations - History of Present Illness Initial Comments: 05/02/18 23:11 The patient is a 37 year old male with a significant past medical history of diabetes, hypertension, GERD, appendectomy and hernia repair who presents to the emergency department with chest pain for days. The patient patient reports that he has been feeling a squeezing pain on his left sided chest since yesterday. The patient states that he was at home and feeling tired and drained. He states that his pain went away yesterday and returned today at about 4pm after eating a butter roll. The patient denies any heavy lifting or recent injury. He denies any pain radiation to his back or arms. He denies any smoking drinking or drugs. The patient does endorse significant family history of CO (uncles, and cousins at age 40/50). The patient denies any prior history of stress tests. He denies any other symptoms or complaints. <Ilene Walker - Last Filed: 05/02/18 23:11> <Sana Castillo - Last Filed: 05/03/18 02:03> - General Chief Complaint: Chest Pain Stated Complaint: CHEST PAIN Time Seen by Provider: 05/02/18 22:28 Past History <Ilene Walker - Last Filed: 05/02/18 23:11> - Past Medical History COPD: No Diabetes: Yes HTN: Yes - Surgical History Abdominal Surgery: Yes (HERNIA) Appendectomy: Yes - Immunization History Immunization Up to Date: Yes - Suicide/Smoking/Psychosocial Hx Smoking History: Never smoked Have you smoked in the past 12 months: No Information on smoking cessation initiated: No Hx Alcohol Use: No Drug/Substance Use Hx: No Substance Use Type: None <Sana Castillo - Last Filed: 05/03/18 02:03> - Past Medical History Allergies/Adverse Reactions: Allergies Allergy/AdvReac Type Severity Reaction Status Date / Time No Known Allergies Allergy Verified 04/11/18 14:11 Home Medications: Ambulatory Orders Losartan Potassium 50 mg PO DAILY 01/31/18 Metformin HCl [Glucophage] 1,000 mg PO BID 03/19/18 Sitagliptin Phosphate [Januvia] 100 mg PO DAILY 05/03/18 Review of Systems - Review of Systems Able to Perform ROS?: Yes Comments:: 05/02/18 23:12 GENERAL/CONSTITUTIONAL: No fever or chills. No weakness. HEAD, EYES, EARS, NOSE AND THROAT: No change in vision. No ear pain or discharge. No sore throat. GASTROINTESTINAL: No nausea, vomiting, diarrhea or constipation. GENITOURINARY: No dysuria, frequency, or change in urination. CARDIOVASCULAR:(+)chest pain. No chest pain or shortness of breath. RESPIRATORY: No cough, wheezing, or hemoptysis. MUSCULOSKELETAL: No joint or muscle swelling or pain. No neck or back pain. SKIN: No rash NEUROLOGIC: No headache, vertigo, loss of consciousness, or change in strength/ sensation. ENDOCRINE: No increased thirst. No abnormal weight change. HEMATOLOGIC/LYMPHATIC: No anemia, easy bleeding, or history of blood clots. ALLERGIC/IMMUNOLOGIC: No hives or skin allergy. <Ilene Walker - Last Filed: 05/02/18 23:11> *Physical Exam - Vital Signs Last Vital Signs Temp Pulse Resp BP Pulse Ox 98.2 F 75 16 147/109 H 98 05/02/18 21:40 05/02/18 21:40 05/02/18 21:40 05/02/18 21:40 05/02/18 21:40 - Physical Exam Comments: 05/02/18 23:12 GENERAL: Awake, in no acute distress HEAD: No signs of trauma EYES: PERRLA, EOMI, sclera anicteric, conjunctiva clear, visual acuity grossly intact ENT: Auricles normal inspection, hearing grossly normal, nares patent, oropharynx clear without exudates. Moist mucosa NECK: Normal ROM, supple, no lymphadenopathy, JVD, or masses LUNGS: Breath sounds equal, clear to auscultation bilaterally. No wheezes, and no crackles. Normal work of breathing. HEART: Regular rate and rhythm, normal S1 and S2, no murmurs, rubs or gallops ABDOMEN: Soft, nontender, normoactive bowel sounds. No guarding, no rebound. No masses. Non-distended. CHEST WALL: BACK: No midline tenderness. EXTREMITIES: Normal range of motion, no edema. No clubbing or cyanosis. No erythema, or tenderness NEUROLOGICAL: Alert, and fully oriented x4, Cranial nerves II through XII grossly intact. Normal speech, normal gait. DTRs 2/4 bilaterally. SKIN: Warm, Dry, normal turgor, no rashes or lesions noted. <Ilene Walker - Last Filed: 05/02/18 23:11> - Vital Signs Last Vital Signs Temp Pulse Resp BP Pulse Ox 98.2 F 75 16 147/109 H 98 05/02/18 21:40 05/02/18 21:40 05/02/18 21:40 05/02/18 21:40 05/02/18 21:40 <Sana Castillo - Last Filed: 05/03/18 02:03> Moderate Sedation - Procedure Monitoring Vital Signs: Procedure Monitoring Vital Signs Temperature 98.2 F 05/02/18 21:40 Pulse Rate 75 05/02/18 21:40 Respiratory Rate 16 05/02/18 21:40 Blood Pressure 147/109 H 05/02/18 21:40 O2 Sat by Pulse Oximetry (%) 98 05/02/18 21:40 <Ilene Walker - Last Filed: 05/02/18 23:11> - Procedure Monitoring Vital Signs: Procedure Monitoring Vital Signs Temperature 98.2 F 05/02/18 21:40 Pulse Rate 75 05/02/18 21:40 Respiratory Rate 16 05/02/18 21:40 Blood Pressure 147/109 H 05/02/18 21:40 O2 Sat by Pulse Oximetry (%) 98 05/02/18 21:40 <Sana Castillo - Last Filed: 05/03/18 02:03> Heart Score/ECG Review - Risk Factors Risk Factors Heart Score: Yes Hx Hypertension, Yes Hx Diabetes, Yes Positive family hx of cardiac disease Based on the list above the patient has:: >/=3 risk factors or Hx atherosclerotic disease - ECG Intrepretation Rhythm: Regular Rhythm Comment:: 05/03/18 02:00 Normal sinus rhythm at 69 bpm with an incomplete right bundle branch block, there are no acute ST segment elevations Rhythm strip shows a sinus rhythm at 65-70 bpm <Sana Castillo - Last Filed: 05/03/18 02:03> ED Treatment Course - LABORATORY CBC & Chemistry Diagram: 05/02/18 23:30 05/02/18 23:30 - RADIOLOGY Radiology Studies Ordered: 05/03/18 02:01 CTA of the chest shows no aortic abnormality and no pulmonary embolism <Sana Castillo - Last Filed: 05/03/18 02:03> Medical Decision Making - Medical Decision Making 05/03/18 02:01 37-year-old male with persistent left-sided chest pressure throughout the day Patient has a history of diabetes hypertension and significant family history for coronary artery disease CTA of the chest negative for acute pathology Patient will be admitted to hospitalist service for serial enzymes due to significant risk factors <Sana Castillo - Last Filed: 05/03/18 02:03> *DC/Admit/Observation/Transfer - Attestations Scribe Attestion: 05/02/18 23:13 Documentation prepared by Ilene Walker, acting as medical staff physician for Sana Castillo DO, MD. <Ilene Walker - Last Filed: 05/02/18 23:11> - Discharge Dispostion Decision to Admit order: Yes <Sana Castillo - Last Filed: 05/03/18 02:03> Diagnosis at time of Disposition: Chest pain
[2018-05-02] MEDS ORDERED: morphine CARPU-JECT 4 MG/1 ML DISP.SYRIN IVPUSH ONE (22:45)
[2018-05-02] MEDS ORDERED: morphine SULFATE 4 MG/ML VIAL ONE (23:20)
[2018-05-02 23:53] LABS: HEMATOCRIT 41.8 % (35.4-49); HEMOGLOBIN 15.1 GM/dL (11.7-16.9); MCHC 36.1 g/dl (32.0-35.9); MEAN CELL VOLUME 85.9 fl (80-96); MEAN PLT VOLUME 9.3 fl (7.5-11.1); PLATELET COUNT 217 K/MM3 (134-434); RBC 4.86 M/mm3 (4.00-5.60); RDW 13.3 % (11.9-15.9); WHITE BLOOD COUNT 13.1 K/mm3 (4.0-10.0)
[2018-05-03 00:17] LABS: BLOOD UREA NITROGEN 14 mg/dL (7-18); CHLORIDE 101 mmol/L (98-107); CO2 28 mmol/L (21-32); CREATININE 0.8 mg/dL (0.55-1.3); GLUCOSE,RANDOM 148 mg/dL (74-106); MAGNESIUM 1.9 mg/dL (1.8-2.4); N-TERMINAL BNP < 5.0 pg/ml (5-125); POTASSIUM 3.6 mmol/L (3.5-5.1); SODIUM 135 mmol/L (136-145)
[2018-05-03 00:18] LABS: ALBUMIN 3.8 g/dl (3.4-5.0); ALK PHOS 73 U/L (45-117); ANION GAP 6 MMOL/L (8-16); BILIRUBIN,TOTAL 0.4 mg/dL (0.2-1); CALCIUM 8.6 mg/dL (8.5-10.1); SGOT/AST 34 U/L (15-37); SGPT/ALT 83 U/L (13-61); TOT PROT 7.1 g/dl (6.4-8.2)
[2018-05-03 00:28] LABS: INR 1.02 (0.83-1.09)
[2018-05-03] MEDS ORDERED: ONDANSETRON *ODT* 4 MG TABLET SL ONE (02:05)
[2018-05-03] MEDS ORDERED: ASPIRIN 81 MG CHEWABLE TABLETS PO ONE (02:05)
[2018-05-03] MEDS ORDERED: ONDANSETRON *ODT* 4 MG TABLET ONE (02:09)
[2018-05-03] MEDS ORDERED: ASPIRIN 81 MG CHEWABLE TABLETS ONE ×2 (02:09→10:19)
--- NOTE | 2018-05-03 02:10 | PN ---
Teaching Attending Note Name of Resident: Jocelyne Daniel ATTENDING PHYSICIAN STATEMENT I saw and evaluated the patient. I reviewed the resident's note and discussed the case with the resident. I agree with the resident's findings and plan as documented. SUBJECTIVE: Seen and examined; please see resident note for further documentation. In summation, this is a 37 y/o male presenting to the ER with a CC of chest pain that has been worsening for the past day since 4PM; he has had pain in the past before but no formal workup and he doesn't see a analytical chemist. Pain is L-sided ; radiates through chest, and is somewhat pleuritic in nature with it improving with sitting and leaning forward. It started initially when he was at rest and initially resolved when he got up to brush his teeth though did resume thereafter. He is CP free when we saw him in the ER with us able to exert the same pain with palpation. Denies any physical strain, etc. etc. No recent illness. Placing on telemetry and consulting cardiology (will benefit him as he has not had a chance to see one as OP due to access issues). He has multiple risk factors including several members of his mother's side (males) having early onset CAD <45 y/o as well as DM, HLD. He is hemodynamically stable and afebrile. 10 sys ROS done and negative aside from HPI PMH, PSH, Family hx, Social hx reviewed Medication list reviewed; pending reconciliation OBJECTIVE: VS, labs, imaging reviewed NAD, AAO, resting comfortably in bed NC AT EOMI PERRLA RRR s1/2 no mgr; pain to palpation on left sternum Lungs CTAB, w/ sym exp NT ND +BS CN2-12 wnl, no fnd Normal mood, appropriate behavior EKG reviewed CXR reviewed Labs unremarkable with initially negative troponin ASSESSMENT AND PLAN: Patient presents for chest pain that is slightly pleuritic in nature 1) Chest Pain in Adult -Chest pain is pleuritic in nature; initial CTA negative for PE or dissection. Palpation makes this worse. Does have various risk factors so will opt to r/o ACS; monitor on tele, trend trops. Consulting CV (he desires a primary analytical chemist). Check A1c, TSH, troponin 2) DM -Hold PO meds; SSI 3) HLD -Checking lipids; continue statin FENA -LR@60 when NPO -PRN replete -NPO in case stress test desired -OOB Full Code Consultants: KASEY
[2018-05-03] MEDS ORDERED: LACTATED RINGERS SOLUTION 1,000 ML IV SCH (02:15)
--- NOTE | 2018-05-03 02:20 | HP ---
CHIEF COMPLAINT: chest discomfort x2 days PCP: Dr. Ibrahim HISTORY OF PRESENT ILLNESS: 37M w/ pmhx of HTN, DM, GERD presented to the ED with complaints of 2 day history of chest discomfort. Pt says his chest discomfort started at about 4pm while he was making dinner. It is localized to the L chest and feels like tightness/squeezing. He says it had resolved when he went to brush his teeth, but soon came back afterwards and persistently lasted throughout the day. Denies history of these symptoms in the past; also denies palpitations, vomiting , dizziness. Denies history of heart/lung disease, but has had an echo and stress done many years ago which were normal. Admits to having significant family hx of heart disease, most especially in his mother's side. Pt also admits to history of reflux symptoms which have been alleviated with Tums in the past, however his symptoms today feel completely different than his reflux symptoms in the past. He denies trauma to the chest, or taking any meds at home for the discomfort. Upon EMS arrival to his home, he was given Nitro SL after which he complained of a headache. Upon interview in the ED, he was no longer symptomatic with his headache, and chest discomfort was minimal. Additionally, he reports that he has been feeling tired and drained over the past 2 days with some mild weakness in his b/l LE. He denies any peripheral neuropathy or difficulty walking. Denies sick contacts. ER course was notable for: (1) WBC 13.1, Na 135, Glu 148, Trop neg x1 (2) Morphine 4 mg IVP, ASA 324 mg, Zofran given once (3) CTA ordered to r/o aortic dissection Recent Travel: Denies PAST MEDICAL HISTORY: HTN DM GERD PAST SURGICAL HISTORY: lymph node biopsy scalp cyst appendectomy umbilical hernia repair Social History: Smoking: Denies Alcohol: Social drinker, usually beer Drugs: Denies Occupation: [employer] Family History: Father- Unknown cx Maternal grandmother- breast/lung cx Allergies No Known Allergies Allergy (Verified 04/11/18 14:11) HOME MEDICATIONS: Home Medications Medication Instructions Recorded Losartan Potassium 50 mg PO DAILY 01/31/18 Metformin HCl [Glucophage] 1,000 mg PO BID 03/19/18 Sitagliptin Phosphate [Januvia] 100 mg PO DAILY 05/03/18 REVIEW OF SYSTEMS CONSTITUTIONAL: +generalized weakness, malaise, loss of appetite Absent: fever, chills, diaphoresis HEENT: Absent: rhinorrhea, nasal congestion, throat pain, visual changes CARDIOVASCULAR: +chest discomfort, lightheadedness Absent: chest pain, syncope, palpitations, irregular heart rate, peripheral edema RESPIRATORY: +doss when walking up a hill Absent: cough, shortness of breath, orthopnea GASTROINTESTINAL: + nausea Absent: abdominal pain, abdominal distension, vomiting, diarrhea, constipation, melena, hematochezia GENITOURINARY: Absent: dysuria, frequency, urgency, hesitancy, hematuria MUSCULOSKELETAL: Absent: myalgia, arthralgia, joint swelling, back pain, neck pain NEUROLOGIC: +headache Absent: headache, focal weakness or paresthesias, dizziness, unsteady gait, seizure, mental status changes, PHYSICAL EXAMINATION Vital Signs - 24 hr 05/02/18 21:40 Temperature 98.2 F Pulse Rate 75 Respiratory 16 Rate Blood Pressure 147/109 H O2 Sat by Pulse 98 Oximetry (%) GENERAL: Very pleasant, well-appearing male. Awake, alert, and fully oriented, in no acute distress. HEENT: AT/NC. EOMI. Moist mucus membranes. NECK: Normal range of motion, supple without lymphadenopathy, JVD, or masses. LUNGS: CTA B/L. No wheezes/crackles noted. Symmetric chest rise. HEART: RRR. Normal S1, S2. No murmurs heard. Reproducible L sided chest tenderness upon palpation. ABDOMEN: Soft, NT/ND. Obese. Normoactive BS. No masses noted. MUSCULOSKELETAL: Normal range of motion at all joints. No bony deformities or tenderness. UPPER EXTREMITIES: 2+ pulses, warm, well-perfused. No cyanosis. No clubbing. No peripheral edema. LOWER EXTREMITIES: 2+ pulses, warm, well-perfused. No calf tenderness. No peripheral edema. NEUROLOGICAL: Cranial nerves II-XII intact. Normal speech. 5/5 motor strength u /l b/l extremities. SKIN: Warm, dry, normal turgor, no rashes or lesions noted, normal capillary refill. Laboratory Results - last 24 hr 05/02/18 05/02/18 05/02/18 23:30 23:30 23:30 WBC 13.1 H RBC 4.86 Hgb 15.1 Hct 41.8 MCV 85.9 MCH 31.0 MCHC 36.1 H RDW 13.3 Plt Count 217 MPV 9.3 PT with INR 12.00 INR 1.02 Sodium Potassium Chloride Carbon Dioxide Anion Gap BUN Creatinine Creat Clearance w eGFR Random Glucose Calcium Magnesium 1.9 Total Bilirubin AST ALT Alkaline Phosphatase Troponin I B-Natriuretic Peptide < 5.0 L Total Protein Albumin 05/02/18 05/02/18 23:30 23:30 WBC RBC Hgb Hct MCV MCH MCHC RDW Plt Count MPV PT with INR INR Sodium 135 L Potassium 3.6 Chloride 101 Carbon Dioxide 28 Anion Gap 6 L BUN 14 Creatinine 0.8 Creat Clearance w eGFR > 60 Random Glucose 148 H Calcium 8.6 Magnesium Total Bilirubin 0.4 AST 34 ALT 83 H Alkaline Phosphatase 73 Troponin I < 0.02 B-Natriuretic Peptide Total Protein 7.1 Albumin 3.8 CONSULT: Cardio- Dr. Maldonado IMAGING: * CTA: ([place] prelim read) negative. No PE; await final results. ASSESSMENT/PLAN: 37M w/ pmhx of HTN, DM, GERD presented to the ED with complaints of 2 day history of chest discomfort admitted to r/o ACS. #Chest discomfort; pleuritic, reproducible tenderness upon palpation -CTA neg for PE or dissection -Due to pt's risk factors (DM, HTN, significant fam hx), will r/o ACS and admit to tele for observation -Initial trop neg, repeat at 6am -Cardio consult -A1c/TSH/lipid panel ordered #NIDDM -Hold home meds -BGM/ISS ACHS -A1c ordered -Currently follows up with an assistance representative, was scheduled for an appointment today. Denies seeing a telescope repairer for routine work up. #HTN Cont home med: Losartan 50 QD #Prophylaxis -Lovenox 40 SQ QD #FEN -LR @ 60 -recheck BMP in AM -NPO if stress test is needed; defer to cardio dispo -admit to tele obs -medications have been reconciled with patient -full code
[2018-05-03 05:52] LABS: EOS % 1.5 % (0-4.5); HEMOGLOBIN 14.8 GM/dL (11.7-16.9); LYMPH % 24.9 % (8-40); MCH 30.4 pg (25.7-33.7); MCHC 35.4 g/dl (32.0-35.9); MEAN PLT VOLUME 9.1 fl (7.5-11.1); MONO % 9.8 % (3.8-10.2); NEUT % 62.8 % (42.8-82.8); PLATELET COUNT 228 K/MM3 (134-434); RBC 4.88 M/mm3 (4.00-5.60); RDW 13.1 % (11.9-15.9); WHITE BLOOD COUNT 11.9 K/mm3 (4.0-10.0)
[2018-05-03 06:18] LABS: ALBUMIN 3.8 g/dl (3.4-5.0); ALK PHOS 67 U/L (45-117); ANION GAP 6 MMOL/L (8-16); BILIRUBIN,TOTAL 0.5 mg/dL (0.2-1); BLOOD UREA NITROGEN 14 mg/dL (7-18); CALCIUM 8.7 mg/dL (8.5-10.1); CHLORIDE 100 mmol/L (98-107); CO2 29 mmol/L (21-32); CREATININE 0.9 mg/dL (0.55-1.3); GLUCOSE,RANDOM 193 mg/dL (74-106); POTASSIUM 4.3 mmol/L (3.5-5.1); SGOT/AST 35 U/L (15-37); SGPT/ALT 79 U/L (13-61); SODIUM 135 mmol/L (136-145)
[2018-05-03] MEDS: INSULIN SLIDING SCALE (NOVOLOG) 1 VIAL SQ SCH ×2 (06:58→11:42)
[2018-05-03] MEDS ORDERED: INSULIN (NOVOLOG) ASPART 100 UNITS/ML 10ML VIAL ONE (07:00)
[2018-05-03 07:23] VITALS: BP 127/91; PULSE 62; TEMP 98.3
--- NOTE | 2018-05-03 09:05 | CON.CARD ---
Consult Consult Specialty:: Cardiology Referred by:: Hospitalist Medicine Reason for Consultation:: Chest pain - History of Present Illness Chief Complaint: Chest pain History of Present Illness: 37M w/ pmhx of HTN, DM, GERD presented to the ED with complaints of 2 day history of left-sided chest discomfort characterized as tightness/squeezing, pleuritic, non-radiating, non-NTG responsive and non-exertional, improved upright vs supine, worse with palpation. He says it had resolved when he went to brush his teeth, but soon came back afterwards and persistently lasted throughout the day. He denies associated dyspnea, palpitations, near or true syncope, orthopnea, PND or LE edema. Pt also admits to history of reflux symptoms which have been alleviated with Tums in the past, however his symptoms feel different than his reflux symptoms in the past. Chest discomfort has since abated, chest CTA neg for PE. - History Source History Provided By: Patient Limitations to Obtaining History: No Limitations - Past Medical History Cardio/Vascular: Yes: HTN Endocrine: Yes: Diabetes Mellitus - Alcohol/Substance Use Hx Alcohol Use: No - Smoking History Smoking history: Never smoked Have you smoked in the past 12 months: No Home Medications - Allergies Allergies/Adverse Reactions: Allergies Allergy/AdvReac Type Severity Reaction Status Date / Time No Known Allergies Allergy Verified 04/11/18 14:11 - Home Medications Home Medications: Ambulatory Orders Losartan Potassium 50 mg PO DAILY 01/31/18 Metformin HCl [Glucophage] 1,000 mg PO BID 03/19/18 Sitagliptin Phosphate [Januvia] 100 mg PO DAILY 05/03/18 Review of Systems - Review of Systems Cardiovascular: reports: Chest Pain Vital Signs: Vital Signs Temperature 98.3 F 05/03/18 07:22 Pulse Rate 62 05/03/18 07:22 Respiratory Rate 16 05/03/18 07:22 Blood Pressure 127/91 05/03/18 07:22 O2 Sat by Pulse Oximetry (%) 98 05/03/18 07:22 Constitutional: Yes: No Distress, Calm Neck: Yes: Supple Respiratory: Yes: Regular, CTA Bilaterally Gastrointestinal: Yes: Normal Bowel Sounds, Soft, Abdomen, Obese Cardiovascular: Yes: Regular Rate and Rhythm, Other (No rubs) JVD: No Carotid Bruit: No Heart Sounds: Yes: S1, S2 Edema: No - Other Data Labs, Other Data: CBC, BMP 05/03/18 05:30 05/03/18 05:30 INR, PTT INR 1.02 (0.83-1.09) 05/02/18 23:30 Troponin, BNP 05/02/18 05/02/18 05/03/18 23:30 23:30 05:30 Troponin I < 0.02 < 0.02 B-Natriuretic Peptide < 5.0 L Troponin, BNP 05/02/18 05/02/18 05/03/18 23:30 23:30 05:30 Troponin I < 0.02 < 0.02 B-Natriuretic Peptide < 5.0 L SR @ 69 IRBBB Ejection Fraction %: LVEF > or = 40 % Problem List - Problems (1) Atypical chest pain Code(s): R07.89 - OTHER CHEST PAIN (2) Type 2 diabetes mellitus Code(s): E11.9 - TYPE 2 DIABETES MELLITUS WITHOUT COMPLICATIONS Qualifiers: Diabetes mellitus snf insulin use: without terminologist use (3) Hypertension Code(s): I10 - ESSENTIAL (PRIMARY) HYPERTENSION Qualifiers: Hypertension type: essential hypertension Qualified Code(s): I10 - Essential (primary) hypertension Assessment/Plan 1. Atypical pleuritic chest pain 2. Type 2 DM not at goal control 3. HTN P:1. Ruled out for RI, PE, consider pericarditis although not seen on ECG 2. Optimize glycemic control 3. May be dced with f/u in cardiology office for stress echo to exclude structural heart disease 4. Thank you for consultative opportunity
[2018-05-03] MEDS ORDERED: ACETAMINOPHEN 325 MG TABLET (FP) ONE (09:21)
[2018-05-03] MEDS ORDERED: ASPIRIN 81 MG CHEWABLE TABLETS PO SCH (10:00)
[2018-05-03] MEDS ORDERED: RANITIDINE HCL 150 MG TABLET (FP) PO SCH (10:00)
[2018-05-03] MEDS ORDERED: ENOXAPARIN NA (PORCINE) 40 MG/0.4 ML DISP.SYRIN SQ SCH (10:00)
[2018-05-03] MEDS ORDERED: LOSARTAN POTASSIUM 50 MG TABLET (FP) PO SCH (10:00)
--- NOTE | 2018-05-03 10:04 | EKG ---
Test Reason : Blood Pressure : / mmHG Vent. Rate : 069 BPM Atrial Rate : 069 BPM P-R Int : 172 ms QRS Dur : 106 ms QT Int : 390 ms P-R-T Axes : 047 089 043 degrees QTc Int : 417 ms NORMAL SINUS RHYTHM INCOMPLETE RIGHT BUNDLE BRANCH BLOCK BORDERLINE ECG WHEN COMPARED WITH ECG OF 11-APR-2018 16:04, NO SIGNIFICANT CHANGE WAS FOUND Confirmed by DAMIAN DIAZ, HIMANSHU ([id number]) on 05/03/2018 10:04:26 AM Referred By: Confirmed By:HIMANSHU SALGADO MD
[2018-05-03] MEDS ORDERED: RANITIDINE HCL 150 MG TABLET (FP) ONE (10:19)
--- NOTE | 2018-05-03 11:57 | DS ---
Physical Exam: SUBJECTIVE: Patient seen and examined OBJECTIVE: Vital Signs Period Temp Pulse Resp BP Sys/Suárez Pulse Ox Last 24 Hr 98.2 F-98.3 F 62-75 16-18 127-151/91-109 98-98 PHYSICAL EXAM GENERAL: Very pleasant, well-appearing male. Awake, alert, and fully oriented, in no acute distress. HEENT: AT/NC. EOMI. Moist mucus membranes. NECK: Normal range of motion, supple without lymphadenopathy, JVD, or masses. LUNGS: CTA B/L. No wheezes/crackles noted. Symmetric chest rise. HEART: RRR. Normal S1, S2. No murmurs heard. Reproducible L sided chest tenderness upon palpation. ABDOMEN: Soft, NT/ND. Obese. Normoactive BS. No masses noted. MUSCULOSKELETAL: Normal range of motion at all joints. No bony deformities or tenderness. UPPER EXTREMITIES: 2+ pulses, warm, well-perfused. No cyanosis. No clubbing. No peripheral edema. LOWER EXTREMITIES: 2+ pulses, warm, well-perfused. No calf tenderness. No peripheral edema. NEUROLOGICAL: Cranial nerves II-XII intact. Normal speech. 5/5 motor strength u /l b/l extremities. SKIN: Warm, dry, normal turgor, no rashes or lesions noted, normal capillary refill. LABS Laboratory Results - last 24 hr 05/02/18 05/02/18 05/02/18 23:30 23:30 23:30 WBC 13.1 H RBC 4.86 Hgb 15.1 Hct 41.8 MCV 85.9 MCH 31.0 MCHC 36.1 H RDW 13.3 Plt Count 217 MPV 9.3 Absolute Neuts (auto) Neutrophils % Lymphocytes % Monocytes % Eosinophils % Basophils % Nucleated RBC % PT with INR 12.00 INR 1.02 Sodium Potassium Chloride Carbon Dioxide Anion Gap BUN Creatinine Creat Clearance w eGFR POC Glucometer Random Glucose Hemoglobin A1c % Calcium Magnesium 1.9 Total Bilirubin AST ALT Alkaline Phosphatase Troponin I B-Natriuretic Peptide < 5.0 L Total Protein Albumin Triglycerides Cholesterol Total LDL Cholesterol HDL Cholesterol TSH 05/02/18 05/02/18 05/03/18 23:30 23:30 02:46 WBC RBC Hgb Hct MCV MCH MCHC RDW Plt Count MPV Absolute Neuts (auto) Neutrophils % Lymphocytes % Monocytes % Eosinophils % Basophils % Nucleated RBC % PT with INR INR Sodium 135 L Potassium 3.6 Chloride 101 Carbon Dioxide 28 Anion Gap 6 L BUN 14 Creatinine 0.8 Creat Clearance w eGFR > 60 POC Glucometer 174 Random Glucose 148 H Hemoglobin A1c % Calcium 8.6 Magnesium Total Bilirubin 0.4 AST 34 ALT 83 H Alkaline Phosphatase 73 Troponin I < 0.02 B-Natriuretic Peptide Total Protein 7.1 Albumin 3.8 Triglycerides Cholesterol Total LDL Cholesterol HDL Cholesterol TSH 05/03/18 05/03/18 05/03/18 05:30 05:30 05:30 WBC 11.9 H RBC 4.88 Hgb 14.8 Hct 42.0 MCV 86.0 MCH 30.4 MCHC 35.4 RDW 13.1 Plt Count 228 MPV 9.1 Absolute Neuts (auto) 7.5 Neutrophils % 62.8 Lymphocytes % 24.9 Monocytes % 9.8 Eosinophils % 1.5 Basophils % 1.0 Nucleated RBC % 0 PT with INR INR Sodium 135 L Potassium 4.3 Chloride 100 Carbon Dioxide 29 Anion Gap 6 L BUN 14 Creatinine 0.9 Creat Clearance w eGFR > 60 POC Glucometer Random Glucose 193 H Hemoglobin A1c % Calcium 8.7 Magnesium Total Bilirubin 0.5 AST 35 ALT 79 H Alkaline Phosphatase 67 Troponin I < 0.02 B-Natriuretic Peptide Total Protein 7.0 Albumin 3.8 Triglycerides 181 H Cholesterol 138 Total LDL Cholesterol 85 HDL Cholesterol 31 L TSH 4.37 H 05/03/18 05/03/18 05/03/18 05:30 06:54 11:30 WBC RBC Hgb Hct MCV MCH MCHC RDW Plt Count MPV Absolute Neuts (auto) Neutrophils % Lymphocytes % Monocytes % Eosinophils % Basophils % Nucleated RBC % PT with INR INR Sodium Potassium Chloride Carbon Dioxide Anion Gap BUN Creatinine Creat Clearance w eGFR POC Glucometer 170 213 Random Glucose Hemoglobin A1c % 8.5 H Calcium Magnesium Total Bilirubin AST ALT Alkaline Phosphatase Troponin I B-Natriuretic Peptide Total Protein Albumin Triglycerides Cholesterol Total LDL Cholesterol HDL Cholesterol TSH HOSPITAL COURSE:37M w/ pmhx of HTN, DM, GERD presented to the ED with complaints of 2 day history of chest discomfort. Pt says his chest discomfort started at about 4pm while he was making dinner. It is localized to the L chest and feels like tightness/squeezing. He says it had resolved when he went to brush his teeth, but soon came back afterwards and persistently lasted throughout the day. Denies history of these symptoms in the past; also denies palpitations, vomiting, dizziness. Denies history of heart/lung disease, but has had an echo and stress done many years ago which were normal. Admits to having significant family hx of heart disease, most especially in his mother's side. Pt also admits to history of reflux symptoms which have been alleviated with Tums in the past, however his symptoms today feel completely different than his reflux symptoms in the past. He denies trauma to the chest, or taking any meds at home for the discomfort. Upon EMS arrival to his home, he was given Nitro SL after which he complained of a headache. Upon interview in the ED, he was no longer symptomatic with his headache, and chest discomfort was minimal. Additionally, he reports that he has been feeling tired and drained over the past 2 days with some mild weakness in his b/l LE. He denies any peripheral neuropathy or difficulty walking. Denies sick contacts. In hospital pt got morphine, nitroglycerine and aspirin and his pain got better. Chemical Compounder Dr morrison was consulted and advised that pt can be discharged with cardiology follow up and he might need a stress test which can be done outpatient. Date of Admission:05/02/18 Date of Discharge: 05/03/18 Minutes to complete discharge: 45 Discharge Summary Reason For Visit: CHEST PAIN Current Active Problems Atypical chest pain (Acute) Hypertension (Acute) Type 2 diabetes mellitus (Acute) - Instructions Diet, Activity, Other Instructions: Follow up with your primary care with in one week Follow up with poultry farmer Dr. Morrison with in one week You miht need astress test which can be done outpatinet. Take all the medicines as you were taking it before. Monitor your blood sugar and blood pressure. Take tylenol for musculoskeletal pain. If you develop chest pain, sob, palpitations, or any new symptoms then contact doctor or go to hospital Referrals: Peter Morrison MD [Staff Physician] - Disposition: HOME - Home Medications Comprehensive Discharge Medication List: Ambulatory Orders Losartan Potassium 50 mg PO DAILY 01/31/18 Metformin HCl [Glucophage] 1,000 mg PO BID 03/19/18 Sitagliptin Phosphate [Januvia] 100 mg PO DAILY 05/03/18 This patient is new to me today: Yes Date on this admission: 05/03/18 Emergency Visit: Yes ED Registration Date: 05/02/18 Care time: The patient presented to the Emergency Department on the above date and was hospitalized for further evaluation of their emergent condition. Critical Care patient: No - Discharge Referral Referred to [facility] No
--- NOTE | 2018-05-03 13:12 | ECHO ---
Name: VALERIANO BUTLER Exam:Adult Echocardiogram Study Date: 05/03/2018 11:25 AM Age: 37 yrs Reason For Study: CHEST PAIN Height: 71 in Weight: 230 lb BSA: 2.2 m2 MMode/2D Measurements & Calculations IVSd: 0.99 cm Ao root diam: 3.1 cm LVIDd: 4.7 cm LA dimension: 4.0 cm LVIDs: 2.6 cm ACS: 1.9 cm LVPWd: 0.99 cm IVSs: 1.1 cm LVPWs: 1.6 cm EDV(Teich): 101.1 ml ESV(Teich): 25.4 ml Doppler Measurements & Calculations MV E max dawood: 83.9 cm/sec Ao V2 max: 118.1 cm/sec MV A max dawood: 44.4 cm/sec Ao max P.6 mmHg MV E/A: 1.9 Ao V2 mean: 86.5 cm/sec Ao mean P.2 mmHg Ao V2 VTI: 22.9 cm TR max dawood: 229.4 cm/sec PI end-d dawood: 95.0 cm/sec TR max P.2 mmHg Med Peak E' Dawood: 8.0 cm/sec Med E/e': 10.5 Lat Peak E' Dawood: 6.8 cm/sec Lat E/e': 12.3 Procedure A two-dimensional transthoracic echocardiogram with color flow and Doppler was performed. Left Ventricle The left ventricular size, thickness and function are normal. The left ventricular ejection fraction is normal. Left Ventricular Filling pattern is normal for age. The left ventricular wall motion is vijaya l. Atria The left atrium is mildly dilated. The right atrium is mildly dilated. Tricuspid Valve There is mild tricuspid valve thickening. There is no tricuspid stenosis. There is mild tricuspid regurgitation. Right ventricular systolic pressure is normal. Aortic Valve The aortic valve is normal in structure and function. There is mild aortic valve thickening. No hemodynamically significant valvular aortic stenosis. No aortic regurgitation is present. Pulmonic Valve The pulmonic valve is not well visualized. There is no pulmonic valvular stenosis. Mild pulmonic valv ular regurgitation. Great Vessels The aortic root is normal size. Pericardium/Pleura There is no pericardial effusion. Interpretation Summary The left ventricular size, thickness and function are normal The left ventricular ejection fraction is normal. The left ventricular wall motion is normal. The left atrium is mildly dilated. The right atrium is mildly dilated. Mild pulmonic valvular regurgitation. Left Ventricular Filling pattern is normal for age. Right ventricular systolic pressure is normal. There is mild tricuspid regurgitation. MD Marlon Rush 05/03/2018 01:12 PM
--- NOTE | 2018-05-03 17:28 | PN ---
Teaching Attending Note Name of Resident: Antonio Owens ATTENDING PHYSICIAN STATEMENT I saw and evaluated the patient. I reviewed the resident's note and discussed the case with the resident. I agree with the resident's findings and plan as documented. SUBJECTIVE: no c/o chest pain or SOB OBJECTIVE: Vital Signs Temperature 98.3 F 05/03/18 07:22 Pulse Rate 62 05/03/18 07:22 Respiratory Rate 16 05/03/18 07:22 Blood Pressure 127/91 05/03/18 07:22 O2 Sat by Pulse Oximetry (%) 98 05/03/18 07:22 Young man man comfortable not in distress HEENT: Mm moist, no anemia, PERRLA EOMI NECK: No JVd No Bruit CHEST: Chest wall point tenderness, CTA B/L CVS: s1S2 R ABD: No distention, non tender Bs + EXT: No vira afeet, no calf tenderness, Pulses + SUPERVISOR REWORK: AOX3 non focal CBC, BMP 05/03/18 05:30 05/03/18 05:30 CXR: Normal Serial CE normal ECHO Normal ASSESSMENT AND PLAN:37 yrs old man with H/O HTN, Dyslipedemia, T2DM present with atypical chest pain with no EKG chnages normal serial CE and ECHO, evaluted by cardiology consult recommended out patient F/U for CAd risk startification; Patient can be Dc Home on home meds F/U PCP and cardiology dR Maldonado Problem List - Problems (1) Atypical chest pain Assessment/Plan: noral serial CE and EKG evaluted by [facility] consult multiple CAd risk factors can be Dc home as per cardiology recommondatiuon, patient needs out patient w/u Code(s): R07.89 - OTHER CHEST PAIN (2) Type 2 diabetes mellitus Assessment/Plan: Optimize Glycemic control resume all home meds Code(s): E11.9 - TYPE 2 DIABETES MELLITUS WITHOUT COMPLICATIONS Qualifiers: Diabetes mellitus alf insulin use: without alf use (3) Hypertension Assessment/Plan: well controlled resume all home meds Code(s): I10 - ESSENTIAL (PRIMARY) HYPERTENSION Qualifiers: Hypertension type: essential hypertension Qualified Code(s): I10 - Essential (primary) hypertension (4) Hypercholesterolemia Assessment/Plan: Cont statin Code(s): E78.00 - PURE HYPERCHOLESTEROLEMIA, UNSPECIFIED
== END 2018-05-03 12:59 | disposition home or self-care (01) ==
LOC: JER 21:40 → JERBED 22:44
PROVIDERS: ADMIT Internal Medicine; ATTEND Internal Medicine
PROC: 3E033NZ Introduction of Analgesics, Hypnotics, Sedatives into Peripheral Vein, Percutaneous Approach (ICD-10-PCS; principal; 2018-05-02)
PROC: 3E0337Z Introduction of Electrolytic and Water Balance Substance into Peripheral Vein, Percutaneous Approach (ICD-10-PCS; 2018-05-02)
PROC: 3E013VG Introduction of Insulin into Subcutaneous Tissue, Percutaneous Approach (ICD-10-PCS; 2018-05-02)
PROC: 3E013GC Introduction of Other Therapeutic Substance into Subcutaneous Tissue, Percutaneous Approach (ICD-10-PCS; 2018-05-02)
DX: R07.89 Other chest pain (principal); I10 Essential (primary) hypertension; E78.5 Hyperlipidemia, unspecified; E11.9 Type 2 diabetes mellitus without complications; K21.9 Gastro-esophageal reflux disease without esophagitis; Z79.84 Long term (current) use of oral hypoglycemic drugs
CPT/HCPCS: 36415; 71275-TC; 80053; 80061; 82962; 83036; 83721; 83735; 83880; 84443; 84484; 85025; 85027; 85610; 93005; 93010; 93306-TC; 96372; 96374; 99283-25; G0378; Q0162

== ENCOUNTER 2018-09-19 12:12 | Emergency (ER) | payer SELFPAY ==
[2018-09-19 12:24] VITALS: BMI 33.2
[2018-09-19] MEDS ORDERED: ACETAMINOPHEN 500 MG TABLET (FP) PO ONE (13:20)
[2018-09-19] MEDS ORDERED: SODIUM CHLORIDE 0.9% 500 ML INFUS.BAG IV ONE (13:20)
--- NOTE | 2018-09-19 13:30 | PDOC ---
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 Pt states that he's had hernias for years and has had abdominal pain for over 2 years, but it has been worsening over the past month, and acutely worse last night. Pain is cramping/stabbing/burning type, started in b/l and central suprapubic area but has spread to entire abdomen, chronic but intermittently worse, worse with lying down and coughing. Pt also notes the R side of his abdomen has increased in size, sometimes even forming a tent/greek look to his abdomen. Endorses nausea x1.5wks, decreased appetite, weight loss of 10lbs in 2 weeks, and 3 days of soft to watery nonbloody stools. Endorses a dry cough and rhinorrhea since September 07, improved by mucinex. Endorses many chronic symptoms: LBP, intemittent numbness/tingling of legs, CP, SOB, high frequency of urination, bubbly urine, and high thirst. Denies F/C, vomiting, sore throat, headache, sick contacts, travel, flank pain, hematuria, dysuria, blood in stool, constipation, discoloration or redness of skin overlying abdomen or groin or testicles, testicular pain, penile discharge, weakness. No CLP. 05/02/18: presented here to ED with CP; ACS w/u done 06/23: pt states dx with myocardial bridge 03/19/18: pt presents with similar sx of cough, abdominal pain, and testicular pain. CTAP showed hepatosplenomegaly and b/l fat-containing inguinal hernias. No concerning findings on testicular US. Past History - Past Medical History Allergies/Adverse Reactions: Allergies Allergy/AdvReac Type Severity Reaction Status Date / Time No Known Allergies Allergy Verified 09/19/18 12:24 Home Medications: Ambulatory Orders Losartan Potassium 25 mg PO DAILY 01/31/18 Metformin HCl [Glucophage] 1,000 mg PO BID 03/19/18 Carvedilol 6.25 mg PO BID 09/19/18 Gabapentin 100 mg PO DAILY 09/19/18 Glipizide 5 mg PO DAILY 09/19/18 COPD: No Diabetes: Yes HTN: Yes - Surgical History Abdominal Surgery: Yes (HERNIA) Appendectomy: Yes - Immunization History Immunization Up to Date: Yes - Suicide/Smoking/Psychosocial Hx Smoking History: Unknown if ever smoked Have you smoked in the past 12 months: No Information on smoking cessation initiated: No Hx Alcohol Use: No Drug/Substance Use Hx: No Substance Use Type: None Review of Systems - Review of Systems Comments:: 09/19/18 15:02 Constitutional: Negative for chills, fever, fatigue. HENT: Positive for rhinorrhea. Negative for sore throat, congestion. Eyes: Negative for visual disturbance. Respiratory: Positive for shortness of breath (chronic), cough. Negative for wheezing. Cardiovascular: Positive for chest pain (chronic). Negative for palpitations, and leg swelling. Gastrointestinal: Positive for abdominal pain, diarrhea, nausea. Negative for blood in stool, constipation, and vomiting. Genitourinary: Positive for urinary freqency and bubbles in urine. Negative for dysuria, flank pain, and hematuria. Musculoskeletal: Positive for back pain (chronic). Negative for myalgias, and neck pain. Skin: Negative for rash. Neurological: Negative for light-headedness, dizziness, syncope, weakness, numbness and headaches. Psychiatric/Behavioral: Negative for behavioral problems and confusion. *Physical Exam - Vital Signs Last Vital Signs Temp Pulse Resp BP Pulse Ox 97.8 F 81 16 156/109 H 100 09/19/18 12:21 09/19/18 12:21 09/19/18 12:45 09/19/18 12:21 09/19/18 12:45 - Physical Exam Comments: 09/19/18 15:04 Gen: Alert, NAD, comfortable-appearing. HEENT: PERRL, EOMI, MMM, NCAT. No conjunctival pallor. Sclera are non-icteric. Oropharynx is clear. CV: Regular rate and rhythm. No murmurs, rubs, or gallops. PULM: No resp distress. CTAB, no wheezes, rales, or rhonchi. ABD: +ventral hernia with valsalva, diffuse TTP R>L, no discoloration/redness/ warmth of skin, soft, ND, no rebound tenderness or guarding, no CVA tenderness. BACK: No TTP of c/t/l-spine. No step-offs or deformities. MSK: No bony deformities. 2+ pulses in all extremities. NEURO: AAOx3. PERRL. No gross CN deficits. Strength and sensation grossly intact throughout. EXTREMITIES: No cyanosis. No clubbing. No edema. No calf tenderness. PSYCH: Normal mood and thought pattern. SKIN: Warm and dry. Normal capillary refill. No rashes. No jaundice. 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 Pt's abdominal "tenting" with Valsalva consistent with ventral hernia. Abdominal pain chronic, worse with cough most likely due to b/l inguinal hernias; no signs of strangulation or incarceration. Consider other GI etiologies including colitis, gastroenteritis, pancreatitis, and diverticulosis - assess with labs and CTAP. Hemodynamically stable, non-acute abdomen, NABS. NABS and lack of constipation not concerning for SBO. Urinary frequency most likely 2/2 poorly controlled DM, but also consider and r/o renal etiologies including UTI and nephrolithiasis. Low concern for ACS/WA or PNA as etiology of abdominal pain, but with signficant RFs, r/o with CXR, EKG, and cardiac profile x1. -EKG -Labs: CBC, CMP, Coags, Cardiac profile, Lipase, UA/UC -Tylenol for pain -1L IVF -Imaging: CXR, CTAP w/contrast -Dispo: pending workup 09/19/18 14:45 Pt feeling a little better s/p tylenol, but cough is worsening - give lozenge. Labs reviewed. Of note, glu 417 but asymptomatic; urine neg for UTI, 3+ glu, 1.038 specific gravity. CXR: no acute findings 09/19/18 16:41 CTAP: no acute findings. Small b/l inguinal hernias and umbilical hernia. Pain most likely 2/2 hernias. Labs and CTAP not concerning for emergent condition. Discussed results with pt. Referred to surgeon for f/u. Return precautions given. Pt understands all dc instructions and all questions were answered. *DC/Admit/Observation/Transfer Diagnosis at time of Disposition: Abdominal pain - Discharge Dispostion Disposition: HOME Condition at time of disposition: Improved Decision to Admit order: No - Referrals Referrals: Willie Ibrahim MD [Primary Care Provider] - Zaki Thomas MD [Staff Physician] - Robert Brewer MD [Staff Physician] - - Patient Instructions Printed Discharge Instructions: DI for Groin Hernia Additional Instructions: You have been seen in the Emergency Department for your abdominal pain, nausea, and diarrhea. Your CT scan and labs show no signs concerning for an emergent condition such as strangulation of a hernia. You do have hernias but they are reducible and do not require emergent surgery or intervention. If you continue to have this pain, you should probably have the hernias repaired. We have given you a referral to Dr Thomas and Dr Brewer, our surgeons. Give one of them a call to set up an appointment for further evaluation and discussion of your options. If you experience pain, you can take Tylenol or Ibuprofen as directed on the medication bottle, but do not exceed 3g of Ibuprofen or 4g of Tylenol a day. Follow-up with your primary care doctor within 1 week. Return to the ED immediately if you experience pain not controlled by over the counter medications, dizziness, blood in stool, severe vomiting, or any other new or worsening symptom. - Post Discharge Activity
[2018-09-19 13:37] LABS: BASO % 0.9 % (0-2.0); EOS % 1.4 % (0-4.5); HEMATOCRIT 45.7 % (35.4-49); MEAN PLT VOLUME 9.2 fl (7.5-11.1); RDW 12.9 % (11.9-15.9)
[2018-09-19 13:44] LABS: HEMOGLOBIN 15.8 GM/dL (11.7-16.9); LYMPH % 27.8 % (8-40); MCH 29.6 pg (25.7-33.7); MCHC 34.6 g/dl (32.0-35.9); MEAN CELL VOLUME 85.6 fl (80-96); MONO % 15.7 % (3.8-10.2); NEUT % 54.2 % (42.8-82.8); PLATELET COUNT 226 K/MM3 (134-434); RBC 5.34 M/mm3 (4.00-5.60); WHITE BLOOD COUNT 9.4 K/mm3 (4.0-10.0)
[2018-09-19] MEDS ORDERED: ACETAMINOPHEN 500 MG TABLET (FP) ONE (13:46)
--- NOTE | 2018-09-19 14:07 | PDOC ---
Attending Attestation - Resident Resident Name: Starr Brown - ED Attending Attestation I have performed the following: I have examined & evaluated the patient, The case was reviewed & discussed with the resident, I agree w/resident's findings & plan - HPI HPI: 09/19/18 13:56 38-year-old male with history of hypertension, diabetes, GERD, surgical history including appendectomy and umbilical hernia repair about 4 years ago presents now with about 1 week of progressive abdominal complaints. Patient was in his usual state of health, which includes occasional symptomatic inguinal hernias and ventral hernia per his report, no history of obstruction, over the last week developed crampy abdominal pain worse with positional changes and associated with nausea, diarrhea, and decreased appetite. no fever/chills, has had 10-pound weight loss. no travel, no sick contacts, no recent antibiotics. - Physicial Exam PE: 09/19/18 13:58 VSS, slightly elevated BP, afebrile well appearing, no jaundice/pallor, op clear with mmm s1s2 rrr, ctab obese, soft/nd. diffuse tenderness R > L, + guarding and rebound on the right. ventral hernia spontaneously reduces, no incarcerated hernia no cvat normal exam - Medical Decision Making 09/19/18 14:00 38y/o M HTN, DM, h/o appendectomy/umbilical hernia repair p/w diffuse abd pain and diarrhea for one week, HD stable here. ? colitis/diverticulitis, r/o hernia incarceration though not consistent with SBO. labs ivf, pain control ctap reassess 09/19/18 16:35 no leukocytosis, chem wnl. ua clear ctap with fat containing hernias (umbilical and inguinal) but no obstruction or inflammatory/infectious process. well appearing, tolerating PO. agrees with d/c plan, will give surgery referral with return precautions. Heart Score/ECG Review #1 ECG reviewed & interpreted by me at: 12:32 General ECG Interpretation: Sinus Rhythm, Normal Rate (75), Normal Intervals ( qtc 428), No acute ischemic changes
[2018-09-19 14:09] LABS: ALBUMIN 3.7 g/dl (3.4-5.0); BILIRUBIN,TOTAL 0.6 mg/dL (0.2-1); BLOOD UREA NITROGEN 10.1 mg/dL (7-18); CALCIUM 9.1 mg/dL (8.5-10.1); CREATININE 1.1 mg/dL (0.55-1.3); POTASSIUM 4.1 mmol/L (3.5-5.1); TOT PROT 7.5 g/dl (6.4-8.2)
[2018-09-19 14:13] LABS: INR 1.03 (0.83-1.09); PROTHROMBIN TIME (PATIENT) 12.2 SEC (9.7-13.0)
[2018-09-19 14:20] LABS: EPI CELLS 0 /HPF (0-5/HPF); HYALINE CASTS 0 /lpf (0-8); URINE APPEARANCE CLEAR; URINE BACTERIA 12.2 /hpf (NEGATIVE); URINE BILIRUBIN NEGATIVE (NEGATIVE); URINE COLOR YELLOW; URINE GLUCOSE (UA) 3+ (NEGATIVE); URINE KETONE NEGATIVE (NEGATIVE); URINE LEUK ESTERASE NEGATIVE (NEGATIVE); URINE NITRITE NEGATIVE (NEGATIVE); URINE PROTEIN NEGATIVE (NEGATIVE); URINE RBC 0 /hpf (0-4); URINE UROBILINOGEN 0.2 mg/dL (0.2-1.0); URINE WBC 0 /hpf (0-5)
[2018-09-19] MEDS ORDERED: BENZOCAINE/MENTH/CETYLPYRD CL 1 EACH LOZENGE MM PRN (14:50)
[2018-09-19 16:18] VITALS: BP 139/91; PULSE 69; TEMP 98
--- NOTE | 2018-09-20 10:30 | EKG ---
Test Reason : Blood Pressure : / mmHG Vent. Rate : 075 BPM Atrial Rate : 075 BPM P-R Int : 158 ms QRS Dur : 108 ms QT Int : 384 ms P-R-T Axes : 032 102 027 degrees QTc Int : 428 ms NORMAL SINUS RHYTHM RIGHTWARD AXIS BORDERLINE ECG WHEN COMPARED WITH ECG OF 02-MAY-2018 22:33, NO SIGNIFICANT CHANGE WAS FOUND Confirmed by HIMANSHU SALGADO MD ([id number]) on 09/20/2018 10:30:02 AM Referred By: Confirmed By:HIMANSHU SALGADO MD
== END 2018-09-19 16:49 | disposition home or self-care (01) ==
LOC: JER 12:12
DX: K42.9 Umbilical hernia without obstruction or gangrene (principal); I10 Essential (primary) hypertension; E11.9 Type 2 diabetes mellitus without complications; Z79.84 Long term (current) use of oral hypoglycemic drugs; K21.9 Gastro-esophageal reflux disease without esophagitis; R11.0 Nausea
CPT/HCPCS: 36415; 71046-TC-FY; 74177-TC; 80053; 81003; 82550; 83690; 84484; 85025; 85610; 85730; 87086; 93005; 93010; 99285-25

== ENCOUNTER 2019-01-10 21:06 | Emergency (ER) | payer SELFPAY ==
[2019-01-10] MEDS ORDERED: SODIUM CHLORIDE 0.9% 1000 ML INFUS.BAG IV ONE ×2 (21:46)
[2019-01-10 21:47] VITALS: TEMP 98; BMI 32.1
[2019-01-10 22:18] LABS: EOS % 1.4 % (0-4.5); HEMATOCRIT 47.2 % (35.4-49); LYMPH % 38.6 % (8-40); MCH 30.8 pg (25.7-33.7); MCHC 35.9 g/dl (32.0-35.9); MEAN CELL VOLUME 85.9 fl (80-96); MEAN PLT VOLUME 9.8 fl (7.5-11.1); MONO % 8.9 % (3.8-10.2); NEUT % 50.1 % (42.8-82.8); PLATELET COUNT 247 K/MM3 (134-434); RDW 13.3 % (11.9-15.9); VENOUS PC02 45.5 mmHg (38-52); VENOUS PH 7.4 (7.31-7.41); WHITE BLOOD COUNT 10.9 K/mm3 (4.0-10.0)
[2019-01-10 22:23] LABS: URINE APPEARANCE CLEAR; URINE BILIRUBIN NEGATIVE (NEGATIVE); URINE COLOR YELLOW; URINE GLUCOSE (UA) 3+ (NEGATIVE); URINE KETONE NEGATIVE (NEGATIVE); URINE LEUK ESTERASE NEGATIVE (NEGATIVE); URINE NITRITE NEGATIVE (NEGATIVE); URINE PROTEIN NEGATIVE (NEGATIVE); URINE UROBILINOGEN 0.2 mg/dL (0.2-1.0)
[2019-01-10 22:30] LABS: INR 0.97 (0.83-1.09); PROTHROMBIN TIME (PATIENT) 11.4 SEC (9.7-13.0)
--- NOTE | 2019-01-10 22:49 | PDOC ---
Documentation entered by Soledad Pabon SCRIBE, acting as scribe for Roselia Estes DO. Roselia Estes, : This documentation has been prepared by the Pepper pérez Adrianna, SCRIBE, under my direction and personally reviewed by me in its entirety. I confirm that the documentation accurately reflects all work, treatment, procedures, and medical decision making performed by me. History of Present Illness - General Stated Complaint: WEAKNESS Time Seen by Provider: 01/10/19 21:28 - History of Present Illness Initial Comments: The patient is a 38 year old male, with a significant PH of HTN, DM, GERD, and myocardial bridge, who presents to the ED for abnormal sugar levels. Patient reports feeling lightheaded and dehydrated today. He measured his blood sugar multiple times, and notes it read too high. Patient notes this has never happened to him in the past. His baseline sugar is typically in the 200s upon start up in the morning, and averages around the 300s during the day. Patient does admit to having a concepcion cheeseburger from [employer] today. While at dinner, patient felt weak as if he was going to fall over, so he came to the ED for further evaluation. He endorses some nausea and SOB. Patient reports increased urinary frequency lately, and notes he still feels dehydrated even though he drinks a gallon of water a day. Patient reports unintentional weight loss at this time. Denies fever, chills, chest pain, vomit, diarrhea, constipation, dysuria, hematuria, abdominal pain. Allergies: NKA, NKDA Surgical History: Appendectomy, umbilical hernia repair Social History: PCP: Dr. Ibrahim Past History - Past Medical History Allergies/Adverse Reactions: Allergies Allergy/AdvReac Type Severity Reaction Status Date / Time No Known Allergies Allergy Verified 09/19/18 12:24 Home Medications: Ambulatory Orders Losartan Potassium 25 mg PO DAILY 01/31/18 Metformin HCl [Glucophage] 1,000 mg PO BID 03/19/18 Carvedilol 6.25 mg PO BID 09/19/18 Gabapentin 100 mg PO DAILY 09/19/18 Glipizide 5 mg PO DAILY 09/19/18 COPD: No Diabetes: Yes HTN: Yes - Surgical History Abdominal Surgery: Yes (HERNIA) Appendectomy: Yes - Immunization History Immunization Up to Date: Yes - Psycho Social/Smoking Cessation Hx Smoking History: Unknown if ever smoked Have you smoked in the past 12 months: No Hx Alcohol Use: No Drug/Substance Use Hx: No Substance Use Type: None Review of Systems - Review of Systems Comments:: GENERAL/CONSTITUTIONAL: +Dehydrated. +Generalized weakness. +High blood sugar. No fever or chills. HEAD, EYES, EARS, NOSE AND THROAT: No change in vision. No ear pain or discharge. No sore throat. GASTROINTESTINAL: +Nause. No vomiting, diarrhea or constipation. GENITOURINARY: +Increased urinary frequency. No dysuria or change in urination. CARDIOVASCULAR: +SOB. No chest pain. RESPIRATORY: No cough, wheezing, or hemoptysis. MUSCULOSKELETAL: No joint or muscle swelling or pain. No neck or back pain. SKIN: No rash NEUROLOGIC: +Lightheadedness. No headache, vertigo, loss of consciousness, or change in strength/sensation. ENDOCRINE: +Unintentional weight loss. +Increased thirst. HEMATOLOGIC/LYMPHATIC: No anemia, easy bleeding, or history of blood clots. ALLERGIC/IMMUNOLOGIC: No hives or skin allergy. *Physical Exam - Vital Signs Last Vital Signs Temp Pulse Resp BP Pulse Ox 98.0 F 86 18 146/99 98 01/10/19 21:43 01/10/19 21:43 01/10/19 21:43 01/10/19 21:43 01/10/19 21:43 - Physical Exam Comments: Constitutional: Awake, alert, oriented. No acute distress. Head: Normocephalic. Atraumatic Eyes: PERRL. EOMI. Conjunctivae are not pale. ENT: +Dry, tacky mucous membranes. Posterior pharynx without exudates or erythema. Uvula midline. Neck: Supple. Full ROM. No lymphadenopathy. Cardiovascular: Regular rate. Regular rhythm. S1, S2 regular. Distal pulses are 2+ and symmetric. Pulmonary/Chest: No evidence of respiratory distress. Clear to auscultation bilaterally No wheezing, rales or rhonchi. Abdominal: Soft and nondistended. There is no tenderness. No rebound, guarding or rigidity. No organomegaly. No palpable masses. Good bowel sounds. Back: No CVA tenderness. Musculoskeletal: No edema. No cyanosis. No clubbing. Full range of motion in all extremities. Nocalf tenderness. Radial/pedal pulses are intact and 2+ bilaterally Skin: Skin is warm and dry. No petechiae. No purpura. Neurological: Alert and oriented to person, place, and time. Cranial nerves II -XII are grossly intact. Normal speech. Strength is grossly symmetric. No sensory deficits. Ambulates with a steady gait. Psychiatric: Good eye contact. Normal interaction, affect and behavior. Heart Score/ECG Review - ECG Intrepretation Comment:: 01/10/19 23:17 sinus at 74, nl axis, nl interval, no acute st/t wave findings ED Treatment Course - LABORATORY CBC & Chemistry Diagram: 01/10/19 22:05 01/10/19 22:05 - ADDITIONAL ORDERS Additional order review: Laboratory Results 01/10/19 01/10/19 01/10/19 22:05 22:05 22:05 PT with INR 11.40 INR 0.97 PTT (Actin FS) 31.9 Urine Color Yellow Urine Appearance Clear Urine pH 6.[address] 1.038 H Urine Protein Negative Urine Glucose (UA) 3+ H Urine Ketones Negative Urine Blood Negative Urine Nitrite Negative Urine Bilirubin Negative Urine Urobilinogen 0.2 Ur Leukocyte Esterase Negative 01/10/19 22:05 RBC 5.50 MCV 85.9 MCHC 35.9 RDW 13.3 MPV 9.8 Neutrophils % 50.1 Lymphocytes % 38.6 D Monocytes % 8.9 Eosinophils % 1.4 Basophils % 1.0 - Medications Given in the ED: ED Medications Discontinued Medications Generic Name Dose Route Start Last Admin Trade Name Freq PRN Reason Stop Dose Admin Sodium Chloride 1,000 ml 01/10/19 21:46 01/10/19 22:18 Normal Saline - IV 01/10/19 21:47 1,000 ml ONCE ONE Administration Medical Decision Making - Medical Decision Making 01/10/19 22:42 a/p: 38yo male with hx of htn, dm with elevated glucose tonight -states he ate a [employer] cheeseburger earlier today -states he checked his glu because he was feeling lightheaded and it read incalculably high -pt states 1m of wt loss, urinary freq, polyuria, polydypsia - most likely secondary to uncontrolled glucose -pt denies f/c -no cp/sob -no abd pain -no n/v/d -will send labs, vbg, ekg, cxr, ua -will monitor and reassess -ivf hydration 01/10/19 23:22 trop neg pt appears dehydrated on labs glu 422 co2 29 vbg pending 01/10/19 23:48 pH normal 01/11/19 00:23 repeat bg 329 pt states feeling better asking to go home and sleep discussed diabetic diet, lifestyle modifications, following up with endo and pmd answered all questions stable for dc to home Discharge - Discharge Information Problems reviewed: Yes Clinical Impression/Diagnosis: Uncontrolled diabetes mellitus Condition: Stable Disposition: HOME - Admission No - Follow up/Referral Referrals: Willie Ibrahim MD [Primary Care Provider] - Ming Young MD [Staff Physician] - Mat Calhoun MD [Staff Physician] - Lucita Maxwell MD [Staff Physician] - - Patient Discharge Instructions Patient Printed Discharge Instructions: DI for Hyperglycemia -- Adult Additional Instructions: Please drink plenty of water and keep yourself well hydrated. Please watch your diet. Please take all medications as prescribed. Please avoid white bread, white rice, white flour, white cakes/cookies, white flour based pizza. Please make an appointment to see the television tube inspector. Please follow up with your PMD in 2 days. - Post Discharge Activity
[2019-01-10 23:07] LABS: BLOOD UREA NITROGEN 13.7 mg/dL (7-18); POTASSIUM 3.8 mmol/L (3.5-5.1)
[2019-01-10 23:08] LABS: ALBUMIN 4.1 g/dl (3.4-5.0); BILIRUBIN,TOTAL 0.5 mg/dL (0.2-1); CALCIUM 8.9 mg/dL (8.5-10.1); MAGNESIUM 2.2 mg/dL (1.8-2.4)
[2019-01-10 23:23] LABS: TOT PROT 7.6 g/dl (6.4-8.2)
[2019-01-11] MEDS ORDERED: ACETAMINOPHEN 325 MG TABLET (FP) ONE (00:23)
[2019-01-11] MEDS ORDERED: ACETAMINOPHEN 325 MG TABLET (FP) PO ONE (00:23)
[2019-01-11 00:58] VITALS: BP 130/90; PULSE 88
--- NOTE | 2019-01-11 11:49 | EKG ---
Test Reason : Blood Pressure : / mmHG Vent. Rate : 074 BPM Atrial Rate : 074 BPM P-R Int : 170 ms QRS Dur : 110 ms QT Int : 418 ms P-R-T Axes : 030 074 025 degrees QTc Int : 463 ms NORMAL SINUS RHYTHM NORMAL ECG WHEN COMPARED WITH ECG OF 19-SEP-2018 12:32, NO SIGNIFICANT CHANGE WAS FOUND Confirmed by AMINA CASIANO MD ([id number]) on 01/11/2019 11:48:28 AM Referred By: Confirmed By:AMINA CASIANO MD
== END 2019-01-11 00:32 | disposition home or self-care (01) ==
LOC: JER 21:06
DX: E11.65 Type 2 diabetes mellitus with hyperglycemia (principal); Z79.84 Long term (current) use of oral hypoglycemic drugs; I10 Essential (primary) hypertension
CPT/HCPCS: 36415; 80053; 81003; 82010; 82550; 82803; 82962; 83735; 84484; 85025; 85610; 85730; 93005; 93010; 99283-25; J7030

== ENCOUNTER 2020-01-29 16:58 | Emergency (ER) | payer OTHER ==
[2020-01-29] MEDS ORDERED: SODIUM CHLORIDE 0.9% 500 ML INFUS.BAG IV ONE (17:32)
[2020-01-29 17:50] VITALS: BP 147/99; PULSE 82; TEMP 98.1; BMI 32.1
[2020-01-29 17:55] LABS: BASO % 0.6 % (0-2.0); EOS % 1.8 % (0-4.5); HEMATOCRIT 47.7 % (35.4-49); HEMOGLOBIN 16.4 GM/dl (11.7-16.9); LYMPH % 37.2 % (8-40); MCH 30.4 pg (25.7-33.7); MCHC 34.4 g/dl (32.0-35.9); MEAN CELL VOLUME 88.3 fl (80-96); MEAN PLT VOLUME 10.1 fl (7.5-11.1); MONO % 8.3 % (3.8-10.2); NEUT % 52.1 % (42.8-82.8); PLATELET COUNT 264 K/MM3 (134-434); RBC 5.41 M/mm3 (4.00-5.60); RDW 11.6 % (11.9-15.9); WHITE BLOOD COUNT 11.3 K/mm3 (4.0-10.8)
[2020-01-29 18:07] LABS: ALBUMIN 4.3 g/dl (3.4-5.0); BILIRUBIN,TOTAL 0.8 mg/dl (0.2-1); CALCIUM 9.2 mg/dl (8.5-10); CREATININE 0.8 mg/dl (0.55-1.3); POTASSIUM 3.6 mmol/L (3.5-5.1); TOT PROT 7.2 g/dl (6.4-8.2)
== END 2020-01-29 19:00 | disposition home or self-care (01) ==
LOC: FER 16:58
DX: R73.9 Hyperglycemia, unspecified (principal)
CPT/HCPCS: 36415; 80053; 82962; 85025; 99284-25

== ENCOUNTER 2020-04-24 04:24 | Day surgery (SDC) | payer OTHER ==
[2020-04-22 16:09] VITALS: BMI 32.1
[2020-04-24 10:34] VITALS: BP 125/74; PULSE 71
[2020-04-24 14:06] VITALS: TEMP 97.9
== END 2020-04-24 11:15 | disposition home or self-care (01) ==
LOC: JASU-ENDO 04:24
PROVIDERS: ATTEND Internal Medicine Gastroenterology
PROC: 0DBB8ZX Excision of Ileum, Via Natural or Artificial Opening Endoscopic, Diagnostic (ICD-10-PCS; principal; 2020-04-24 09:14)
DX: D13.30 Benign neoplasm of unspecified part of small intestine (principal); K51.40 Inflammatory polyps of colon without complications; K64.8 Other hemorrhoids
CPT/HCPCS: 82962; 88305-TC

== ENCOUNTER 2020-06-05 04:18 | Day surgery (SDC) | payer OTHER ==
[2020-06-03 14:03] VITALS: BMI 32.3
[2020-06-05 12:42] VITALS: TEMP 97.8
[2020-06-05 14:44] VITALS: BP 128/83; PULSE 73
== END 2020-06-05 13:35 | disposition home or self-care (01) ==
LOC: JASU-ENDO 04:18
PROVIDERS: ATTEND Internal Medicine Gastroenterology
PROC: 0DB78ZX Excision of Stomach, Pylorus, Via Natural or Artificial Opening Endoscopic, Diagnostic (ICD-10-PCS; 2020-06-05)
PROC: 0DB98ZX Excision of Duodenum, Via Natural or Artificial Opening Endoscopic, Diagnostic (ICD-10-PCS; principal; 2020-06-05 11:30)
DX: K21.9 Gastro-esophageal reflux disease without esophagitis (principal); K29.50 Unspecified chronic gastritis without bleeding; K29.80 Duodenitis without bleeding; K31.89 Other diseases of stomach and duodenum; Z87.19 Personal history of other diseases of the digestive system
CPT/HCPCS: 82962; 88305-TC; 88342-TC

== ENCOUNTER 2020-11-09 07:16 | Emergency (ER) | payer OTHER ==
[2020-11-09 07:38] VITALS: BP 132/92; PULSE 82; TEMP 98.5; BMI 30.7
== END 2020-11-09 08:19 | disposition home or self-care (01) ==
LOC: JER 07:16
DX: R05 Cough (principal); R50.9 Fever, unspecified; Z20.822 Contact with and (suspected) exposure to COVID-19
CPT/HCPCS: 99283-25; C9803; U0003; U0005

== ENCOUNTER 2020-11-14 08:39 | Inpatient (IN) | payer OTHER ==
[2020-11-14 08:55] VITALS: BMI 30.7
[2020-11-14] MEDS ORDERED: CASIRIVIMAB/IMDEVIMAB 10 ML in SODIUM CHLORIDE 100 ML IVPB ONE (09:10)
[2020-11-14] MEDS ORDERED: SODIUM CHLORIDE 1,000 ML IV STA (12:18)
[2020-11-14] MEDS ORDERED: guaiFENesin 200 MG/10 ML 10 ML UNIT-DOSE CUPS PO ONE (12:19)
[2020-11-14] MEDS ORDERED: ENOXAPARIN NA (PORCINE) 40 MG/0.4 ML DISP.SYRIN SQ SCH (13:30)
[2020-11-14 13:44] LABS: BASO % 0.7 % (0-2.0); EOS % 0.3 % (0-4.5); HEMATOCRIT 41.9 % (35.4-49); HEMOGLOBIN 14.9 GM/dL (11.7-16.9); LYMPH % 20.4 % (8-40); MCH 30.2 pg (25.7-33.7); MCHC 35.5 g/dl (32.0-35.9); MEAN CELL VOLUME 84.9 fl (80-96); MEAN PLT VOLUME 8.9 fl (7.5-11.1); MONO % 15.2 % (3.8-10.2); NEUT % 63.4 % (42.8-82.8); PLATELET COUNT 173 10^3/uL (134-434); RBC 4.93 M/mm3 (4.00-5.60); RDW 12.7 % (11.9-15.9); WHITE BLOOD COUNT 7.4 K/mm3 (4.0-10.0)
[2020-11-14] MEDS ORDERED: METOCLOPRAMIDE HCL INJECTION 10 MG/2 ML VIAL IVPB ONE (13:59)
[2020-11-14] MEDS ORDERED: ACETAMINOPHEN 1000 MG/100 ML VIAL (NON FORMULARY) IVPB ONE (13:59)
[2020-11-14 14:00] LABS: CHLORIDE 103 mmol/L (98-107); SODIUM 139 mmol/L (136-145)
[2020-11-14 14:03] LABS: ALBUMIN 3.2 g/dl (3.4-5.0); BLOOD UREA NITROGEN 12.6 mg/dL (7-18); CALCIUM 8.3 mg/dL (8.5-10.1); GLUCOSE,RANDOM 114 mg/dL (74-106)
[2020-11-14 14:04] LABS: ANION GAP 8 MMOL/L (8-16); CO2 28 mmol/L (21-32)
[2020-11-14 14:06] LABS: CREATININE 0.9 mg/dL (0.55-1.3); SGOT/AST 52 U/L (15-37); SGPT/ALT 92 U/L (13-61)
[2020-11-14 14:08] LABS: BILIRUBIN,TOTAL 0.5 mg/dL (0.2-1)
[2020-11-14] MEDS ORDERED: DEXAMETHASONE SOD PHOSPHATE 4 MG/1 ML VIAL IVPUSH ONE (14:08)
[2020-11-14 14:09] LABS: ALK PHOS 75 U/L (45-117)
[2020-11-14 16:00] LABS: INR 1.21 (0.83-1.09); PROTHROMBIN TIME (PATIENT) 14.8 SEC (9.7-13.0)
[2020-11-14] MEDS: CARVEDILOL 12.5 MG TABLET (FP) PO SCH ×3 (17:36→21:48)
[2020-11-14] MEDS ORDERED: REMDESIVIR 200 MG in SODIUM CHLORIDE 250 ML IVPB ONE (18:00)
[2020-11-14] MEDS ORDERED: ACETAMINOPHEN 325 MG TABLET (FP) PO PRN (18:41)
[2020-11-14] MEDS ORDERED: ONDANSETRON 4 MG/2 ML VIAL IVPUSH PRN (18:41)
[2020-11-14] MEDS ORDERED: guaiFENesin 200 MG/10 ML 10 ML UNIT-DOSE CUPS PO PRN (18:42)
[2020-11-14] MEDS: INSULIN SLIDING SCALE (NOVOLOG) 1 VIAL SQ SCH (19:37)
[2020-11-14] MEDS ORDERED: FAMOTIDINE 20 MG/50 ML IVPB 20 MG/50 ML MG IVPB SCH (22:00)
[2020-11-15] MEDS ORDERED: MELATONIN 5 MG TABLETS PO ONE (00:11)
[2020-11-15] MEDS: INSULIN SLIDING SCALE (NOVOLOG) 1 VIAL SQ SCH ×3 (06:06→17:50)
[2020-11-15 09:50] LABS: BASO % 0.3 % (0-2.0); HEMATOCRIT 42.1 % (35.4-49); LYMPH % 19.9 % (8-40); MCH 30.1 pg (25.7-33.7); MCHC 35.6 g/dl (32.0-35.9); MEAN CELL VOLUME 84.7 fl (80-96); MEAN PLT VOLUME 9.1 fl (7.5-11.1); MONO % 11.1 % (3.8-10.2); NEUT % 68.7 % (42.8-82.8); PLATELET COUNT 211 10^3/uL (134-434); RBC 4.97 M/mm3 (4.00-5.60); RDW 12.7 % (11.9-15.9); WHITE BLOOD COUNT 8.2 K/mm3 (4.0-10.0)
[2020-11-15 10:16] LABS: ALBUMIN 3.2 g/dl (3.4-5.0); CALCIUM 8.2 mg/dL (8.5-10.1)
[2020-11-15 10:17] LABS: BLOOD UREA NITROGEN 17.4 mg/dL (7-18); MAGNESIUM 2.3 mg/dL (1.8-2.4)
[2020-11-15 10:20] LABS: CREATININE 0.9 mg/dL (0.55-1.3)
[2020-11-15 10:21] LABS: BILIRUBIN,TOTAL 0.9 mg/dL (0.2-1); TOT PROT 7.2 g/dl (6.4-8.2)
[2020-11-15] MEDS: DEXAMETHASONE SOD PHOSPHATE 10 MG/1 ML VIAL IVPUSH SCH (10:44)
[2020-11-15] MEDS: ENOXAPARIN NA (PORCINE) 40 MG/0.4 ML DISP.SYRIN SQ SCH ×2 (10:46→22:58)
[2020-11-15] MEDS: PANTOPRAZOLE 20 MG TABLET PO SCH (10:48)
[2020-11-15] MEDS: LOSARTAN POTASSIUM 50 MG TABLET PO SCH (10:48)
[2020-11-15] MEDS: ASPIRIN COATED 81 MG TABLET.EC PO SCH (10:48)
[2020-11-15] MEDS: CARVEDILOL 12.5 MG TABLET (FP) PO SCH ×2 (10:48→22:58)
[2020-11-15] MEDS: guaiFENesin/CODEINE 10 ML UNIT-DOSE CUPS PO PRN (17:48)
[2020-11-15] MEDS: REMDESIVIR 100 MG in SODIUM CHLORIDE 250 ML IVPB SCH (17:49)
[2020-11-15] MEDS ORDERED: PT OWN MED DRAWER 7, Y5N ONE (20:07)
[2020-11-15] MEDS ORDERED: INSULIN (NOVOLOG) ASPART 100 UNITS/ML 10ML VIAL SQ ONE (22:47)
[2020-11-15] MEDS: MELATONIN 5 MG TABLETS PO PRN (22:58)
[2020-11-16] MEDS: INSULIN SLIDING SCALE (NOVOLOG) 1 VIAL SQ SCH ×3 (06:00→17:39)
[2020-11-16] MEDS: guaiFENesin/CODEINE 10 ML UNIT-DOSE CUPS PO PRN ×2 (06:01→17:31)
[2020-11-16 09:15] LABS: BASO % 0.3 % (0-2.0); HEMATOCRIT 41.4 % (35.4-49); HEMOGLOBIN 14.7 GM/dL (11.7-16.9); LYMPH % 16.9 % (8-40); MCH 30.2 pg (25.7-33.7); MCHC 35.5 g/dl (32.0-35.9); MEAN CELL VOLUME 85.2 fl (80-96); MEAN PLT VOLUME 8.9 fl (7.5-11.1); MONO % 11.6 % (3.8-10.2); NEUT % 71.2 % (42.8-82.8); PLATELET COUNT 248 10^3/uL (134-434); RBC 4.86 M/mm3 (4.00-5.60); RDW 12.8 % (11.9-15.9)
[2020-11-16 09:47] LABS: BLOOD UREA NITROGEN 18.7 mg/dL (7-18); CALCIUM 8.4 mg/dL (8.5-10.1)
[2020-11-16 09:48] LABS: MAGNESIUM 2.3 mg/dL (1.8-2.4)
[2020-11-16 09:50] LABS: CREATININE 0.8 mg/dL (0.55-1.3)
[2020-11-16 09:51] LABS: BILIRUBIN,TOTAL 0.9 mg/dL (0.2-1); TOT PROT 6.9 g/dl (6.4-8.2)
[2020-11-16] MEDS ORDERED: INSULIN (NOVOLOG) ASPART 100 UNITS/ML 10ML VIAL ONE (11:09)
[2020-11-16] MEDS: PANTOPRAZOLE 20 MG TABLET PO SCH (11:11)
[2020-11-16] MEDS: ASPIRIN COATED 81 MG TABLET.EC PO SCH (11:11)
[2020-11-16] MEDS: LOSARTAN POTASSIUM 50 MG TABLET PO SCH (11:11)
[2020-11-16] MEDS: DEXAMETHASONE SOD PHOSPHATE 10 MG/1 ML VIAL IVPUSH SCH (11:11)
[2020-11-16] MEDS: ENOXAPARIN NA (PORCINE) 40 MG/0.4 ML DISP.SYRIN SQ SCH ×2 (11:12→22:03)
[2020-11-16] MEDS: CARVEDILOL 12.5 MG TABLET (FP) PO SCH ×2 (11:12→22:02)
[2020-11-16] MEDS: REMDESIVIR 100 MG in SODIUM CHLORIDE 250 ML IVPB SCH (17:30)
[2020-11-16] MEDS ORDERED: INSULIN (NOVOLOG) ASPART 100 UNITS/ML 10ML VIAL SQ ONE ×2 (17:38→21:58)
[2020-11-16] MEDS ORDERED: ACETAMINOPHEN 325 MG TABLET (FP) PO ONE (21:48)
[2020-11-16] MEDS: MELATONIN 5 MG TABLETS PO PRN (22:02)
[2020-11-17] MEDS: INSULIN SLIDING SCALE (NOVOLOG) 1 VIAL SQ SCH ×3 (06:13→17:53)
[2020-11-17] MEDS: guaiFENesin/CODEINE 10 ML UNIT-DOSE CUPS PO PRN (06:16)
[2020-11-17 10:27] LABS: BASO % 0.2 % (0-2.0); HEMATOCRIT 41.8 % (35.4-49); HEMOGLOBIN 14.8 GM/dL (11.7-16.9); LYMPH % 15.4 % (8-40); MCH 29.7 pg (25.7-33.7); MCHC 35.4 g/dl (32.0-35.9); MEAN PLT VOLUME 8.8 fl (7.5-11.1); NEUT % 74.4 % (42.8-82.8); PLATELET COUNT 279 10^3/uL (134-434); RBC 4.98 M/mm3 (4.00-5.60); RDW 12.5 % (11.9-15.9); WHITE BLOOD COUNT 9.9 K/mm3 (4.0-10.0)
[2020-11-17] MEDS: CARVEDILOL 12.5 MG TABLET (FP) PO SCH ×3 (10:34→22:18)
[2020-11-17] MEDS: ASPIRIN COATED 81 MG TABLET.EC PO SCH (10:35)
[2020-11-17] MEDS: PANTOPRAZOLE 20 MG TABLET PO SCH (10:35)
[2020-11-17] MEDS: ENOXAPARIN NA (PORCINE) 40 MG/0.4 ML DISP.SYRIN SQ SCH ×2 (10:35→22:08)
[2020-11-17] MEDS: DEXAMETHASONE SOD PHOSPHATE 10 MG/1 ML VIAL IVPUSH SCH (10:35)
[2020-11-17] MEDS: LOSARTAN POTASSIUM 50 MG TABLET PO SCH (10:35)
[2020-11-17 10:57] LABS: CREATININE 0.7 mg/dL (0.55-1.3)
[2020-11-17 10:58] LABS: ALBUMIN 2.9 g/dl (3.4-5.0); BLOOD UREA NITROGEN 20.3 mg/dL (7-18)
[2020-11-17 11:00] LABS: BILIRUBIN,TOTAL 0.5 mg/dL (0.2-1); CALCIUM 8.5 mg/dL (8.5-10.1); TOT PROT 6.6 g/dl (6.4-8.2)
[2020-11-17 11:02] LABS: MAGNESIUM 2.3 mg/dL (1.8-2.4)
[2020-11-17] MEDS: REMDESIVIR 100 MG in SODIUM CHLORIDE 250 ML IVPB SCH (12:09)
[2020-11-17] MEDS ORDERED: INSULIN (NOVOLOG) ASPART 100 UNITS/ML 10ML VIAL ONE (17:47)
[2020-11-17] MEDS: MELATONIN 5 MG TABLETS PO PRN (22:07)
[2020-11-18] MEDS: INSULIN SLIDING SCALE (NOVOLOG) 1 VIAL SQ SCH ×3 (06:17→17:31)
[2020-11-18 08:39] LABS: HEMOGLOBIN 14.9 GM/dL (11.7-16.9); MCH 29.6 pg (25.7-33.7); MCHC 35.4 g/dl (32.0-35.9); MEAN CELL VOLUME 83.6 fl (80-96); MEAN PLT VOLUME 8.8 fl (7.5-11.1); PLATELET COUNT 255 10^3/uL (134-434); RBC 5.02 M/mm3 (4.00-5.60); RDW 12.7 % (11.9-15.9); WHITE BLOOD COUNT 9.4 K/mm3 (4.0-10.0)
[2020-11-18 09:01] LABS: ALBUMIN 2.8 g/dl (3.4-5.0)
[2020-11-18 09:02] LABS: BLOOD UREA NITROGEN 19.8 mg/dL (7-18); MAGNESIUM 2.2 mg/dL (1.8-2.4)
[2020-11-18 09:05] LABS: CREATININE 0.7 mg/dL (0.55-1.3)
[2020-11-18 09:06] LABS: BILIRUBIN,TOTAL 0.6 mg/dL (0.2-1); TOT PROT 6.4 g/dl (6.4-8.2)
[2020-11-18] MEDS ORDERED: DEXAMETHASONE 4 MG TABLET (FP) PO SCH (10:00)
[2020-11-18] MEDS ORDERED: APIXABAN 5 MG TABLET PO SCH (10:00)
[2020-11-18] MEDS: LOSARTAN POTASSIUM 50 MG TABLET PO SCH (11:00)
[2020-11-18] MEDS: REMDESIVIR 100 MG in SODIUM CHLORIDE 250 ML IVPB SCH (11:00)
[2020-11-18] MEDS: ASPIRIN COATED 81 MG TABLET.EC PO SCH (11:01)
[2020-11-18] MEDS: PANTOPRAZOLE 20 MG TABLET PO SCH (11:01)
[2020-11-18] MEDS: guaiFENesin/CODEINE 10 ML UNIT-DOSE CUPS PO PRN (11:01)
[2020-11-18 11:13] VITALS: BP 130/80; PULSE 61; TEMP 98.6
[2020-11-18] MEDS: CARVEDILOL 12.5 MG TABLET (FP) PO SCH (11:14)
[2020-11-18 12:12] LABS: ANISOCYTOSIS 0; MACROCYTOSIS 0; PLATELET ESTIMATE NORMAL
== END 2020-11-18 18:11 | disposition home or self-care (01) | DRG 137 ==
LOC: JER 08:39 → JCOVINFU 08:39 → JERBED 12:17 → J8W 16:02
PROVIDERS: ADMIT Internal Medicine; ATTEND Nurse Practitioner Acute Care
PROC: XW033E5 Introduction of Remdesivir Anti-infective into Peripheral Vein, Percutaneous Approach, New Technology Group 5 (ICD-10-PCS; principal; 2020-11-14)
DX: U07.1 COVID-19 (principal); J96.01 Acute respiratory failure with hypoxia; J12.82 Pneumonia due to coronavirus disease 2019; E11.65 Type 2 diabetes mellitus with hyperglycemia; Z99.81 Dependence on supplemental oxygen; E66.9 Obesity, unspecified; E78.00 Pure hypercholesterolemia, unspecified; E78.5 Hyperlipidemia, unspecified; I10 Essential (primary) hypertension; K21.9 Gastro-esophageal reflux disease without esophagitis; R74.01 Elevation of levels of liver transaminase levels; Z68.30 Body mass index [BMI] 30.0-30.9, adult
CPT/HCPCS: 36415; 71046-TC-FY; 80053; 82550; 82728; 82962; 83605; 83615; 83735; 84484; 85025; 85379; 85610; 86140; 86850; 86900; 86901; 87804; 87807; 93005; 93010; 94761; 99285-25; C9399; C9803; J0131; J1100; M0243; Q0240; Q0243; U0003; U0005

== ENCOUNTER 2021-04-07 08:47 | Emergency (ER) | payer OTHER ==
[2021-04-07 09:03] VITALS: BP 154/97; PULSE 74; TEMP 98; BMI 29.9
== END 2021-04-07 09:38 | disposition home or self-care (01) ==
LOC: FER 08:47
DX: L02.214 Cutaneous abscess of groin (principal)
CPT/HCPCS: 99281-25

== ENCOUNTER 2021-05-01 17:15 | Emergency (ER) | payer OTHER ==
[2021-05-01 17:22] VITALS: PULSE 76; TEMP 98.4; BMI 29.9
[2021-05-01 18:03] LABS: ALBUMIN 4.6 g/dl (3.4-5.0); BILIRUBIN,TOTAL 0.7 mg/dl (0.2-1); CREATININE 0.7 mg/dl (0.55-1.3); MAGNESIUM 1.9 mg/dL (1.8-2.4); PHOSPHOROUS 4.6 mg/dl (2.5-4.9); TOT PROT 7.7 g/dl (6.4-8.2)
[2021-05-01] MEDS ORDERED: SODIUM CHLORIDE 1,000 ML IV STA (18:22)
[2021-05-01 18:52] LABS: EOS % 1.6 % (0-4.5); HEMATOCRIT 46.7 % (35.4-49); HEMOGLOBIN 16.5 GM/dL (11.7-16.9); LYMPH % 35.3 % (8-40); MCH 29.8 pg (25.7-33.7); MCHC 35.4 g/dl (32.0-35.9); MEAN PLT VOLUME 8.9 fl (7.5-11.1); MONO % 9.2 % (3.8-10.2); NEUT % 52.9 % (42.8-82.8); PLATELET COUNT 241 10^3/uL (134-434); RBC 5.55 M/mm3 (4.00-5.60); RDW 13.4 % (11.9-15.9); WHITE BLOOD COUNT 10.4 K/mm3 (4.0-10.0)
[2021-05-01 19:26] VITALS: BP 129/64
== END 2021-05-01 19:25 | disposition home or self-care (01) ==
LOC: FER 17:15
DX: R42 Dizziness and giddiness (principal); R53.83 Other fatigue
CPT/HCPCS: 36415; 71046-TC-FY; 80053; 83735; 84100; 85025; 93005; 99284-25

== ENCOUNTER 2021-08-11 18:37 | Emergency (ER) | payer OTHER ==
[2021-08-11 19:00] VITALS: BP 147/94; PULSE 102; TEMP 102.7; BMI 30.7
[2021-08-11] MEDS ORDERED: KETOROLAC TROMETHAMINE 30 MG/1 ML VIAL IM ONE (19:37)
[2021-08-11] MEDS ORDERED: ACETAMINOPHEN 500 MG TABLET (FP) PO ONE (19:38)
[2021-08-11] MEDS ORDERED: ONDANSETRON *ODT* 4 MG TABLET SL ONE (20:26)
[2021-08-11] MEDS ORDERED: ACETAMINOPHEN 500 MG TABLET (FP) ONE (20:27)
[2021-08-11] MEDS ORDERED: KETOROLAC TROMETHAMINE 30 MG/1 ML VIAL ONE (20:27)
[2021-08-11] MEDS ORDERED: ONDANSETRON *ODT* 4 MG TABLET ONE (20:27)
== END 2021-08-11 21:38 | disposition home or self-care (01) ==
LOC: JER 18:37
PROC: 3E023GC Introduction of Other Therapeutic Substance into Muscle, Percutaneous Approach (ICD-10-PCS; principal; 2021-08-11)
DX: J06.9 Acute upper respiratory infection, unspecified (principal)
CPT/HCPCS: 0241U-QW; 87651; 93005; 93010; 99284-25; Q0162

== ENCOUNTER 2021-12-06 21:10 | Emergency (ER) | payer OTHER ==
[2021-12-06 21:25] VITALS: RESP 18; TEMP 98.4; BMI 29.9
[2021-12-06] MEDS ORDERED: IBUPROFEN 600 MG TABLET (FP) PO ONE ×2 (21:40→21:50)
[2021-12-06] MEDS ORDERED: METHOCARBAMOL 500 MG TABLET PO ONE (21:40)
[2021-12-06] MEDS ORDERED: LIDOCAINE 5% TOPICAL PATCH TP ONE (21:40)
[2021-12-06] MEDS ORDERED: METHOCARBAMOL 500 MG TABLET ONE (21:50)
[2021-12-06] MEDS ORDERED: LIDOCAINE 5% TOPICAL PATCH ONE (21:51)
[2021-12-06] MEDS ORDERED: LIDOCAINE PATCH REMOVAL MC SCH (22:00)
[2021-12-06 22:54] LABS: ALBUMIN 4.1 g/dl (3.4-5.0); CALCIUM 9.4 mg/dl (8.5-10); TOT PROT 6.1 g/dl (6.4-8.2)
[2021-12-06] MEDS ORDERED: SODIUM CHLORIDE 0.9% 500 ML INFUS.BAG IV ONE (23:13)
[2021-12-06] MEDS ORDERED: metFORMIN HCL 500 MG TABLET (FP) PO ONE (23:27)
[2021-12-06] MEDS ORDERED: INSULIN REGULAR HUMAN 100 UNITS/ML *VIAL SQ ONE (23:28)
[2021-12-06] MEDS ORDERED: INSULIN REGULAR HUMAN 100 UNITS/ML *VIAL IVPUSH ONE (23:28)
[2021-12-06] MEDS ORDERED: INSULIN REGULAR HUMAN 100 UNITS/ML *VIAL ONE (23:32)
[2021-12-07 00:18] VITALS: BP 122/70; PULSE 61
[2021-12-07 01:06] LABS: BASO % 1.1 % (0-2.0); EOS % 2.1 % (0-4.5); HEMATOCRIT 44.8 % (35.4-49); HEMOGLOBIN 17.2 GM/dL (11.7-16.9); MCH 32.6 pg (25.7-33.7); MCHC 38.5 g/dl (32.0-35.9); MEAN CELL VOLUME 84.8 fl (80-96); MEAN PLT VOLUME 10.1 fl (7.5-11.1); MONO % 7.9 % (3.8-10.2); NEUT % 53.9 % (42.8-82.8); PLATELET COUNT 311 10^3/uL (134-434); RBC 5.28 M/mm3 (4.00-5.60); RDW 13.4 % (11.9-15.9); WHITE BLOOD COUNT 11.7 K/mm3 (4.0-10.0)
== END 2021-12-07 00:18 | disposition home or self-care (01) ==
LOC: FER 21:10
DX: S20.211A Contusion of right front wall of thorax, initial encounter (principal); R10.84 Generalized abdominal pain; W50.0XXA Accidental hit or strike by another person, initial encounter
CPT/HCPCS: 36415; 71101-TC-RT-FY; 74177-TC; 80053; 85025; 99285-25; Q9967

== ENCOUNTER 2021-12-19 20:17 | Emergency (ER) | payer OTHER ==
[2021-12-19 20:37] VITALS: BP 142/75; PULSE 79; RESP 17; TEMP 98.6; BMI 30.7
[2021-12-19] MEDS ORDERED: SODIUM CHLORIDE 1,000 ML IV STA (21:06)
[2021-12-19 21:35] LABS: HEMATOCRIT 49.5 % (35.4-49); HEMOGLOBIN 17.2 G/dL (11.7-16.9); MCH 29.7 pg (25.7-33.7); MCHC 34.8 g/dl (32.0-35.9); MEAN CELL VOLUME 85.3 fl (80-96); RDW 13.7 % (11.9-15.9); WHITE BLOOD COUNT 12.6 10^3/uL (4.0-10.8)
[2021-12-19 21:40] LABS: ALBUMIN 4.2 g/dl (3.4-5.0); BILIRUBIN,TOTAL 0.6 mg/dl (0.2-1); CALCIUM 10.1 mg/dl (8.5-10); CREATININE 0.8 mg/dl (0.55-1.3); TOT PROT 7.2 g/dl (6.4-8.2)
== END 2021-12-19 22:28 | disposition home or self-care (01) ==
LOC: FER 20:17
DX: E11.9 Type 2 diabetes mellitus without complications (principal)
CPT/HCPCS: 36415; 80053; 81003; 82962; 85027; 87086; 99283-25

== ENCOUNTER 2022-07-12 12:35 | Emergency (ER) | payer OTHER ==
[2022-07-12 12:46] VITALS: BP 130/90; PULSE 83; RESP 18; TEMP 97.8; BMI 29.2
[2022-07-12] MEDS ORDERED: ACETAMINOPHEN 1000 MG/100 ML BAG IVPB ONE (13:01)
[2022-07-12 13:02] LABS: HEMATOCRIT 45.8 % (35.4-49); HEMOGLOBIN 16.1 G/dL (11.7-16.9); MCH 30.7 pg (25.7-33.7); MCHC 35.2 g/dl (32.0-35.9); MEAN CELL VOLUME 87.3 fl (80-96); MEAN PLT VOLUME 9.3 fl (7.5-11.1); PLATELET COUNT 211.7 10^3/uL (134-434); RBC 5.25 10^6/uL (4.00-5.60); RDW 13.7 % (11.9-15.9)
[2022-07-12] MEDS ORDERED: ACETAMINOPHEN INJECTION 100 ML IVPB ONE (13:03)
[2022-07-12 13:16] LABS: ALBUMIN 3.9 g/dl (3.4-5.0); CALCIUM 8.9 mg/dl (8.5-10); CREATININE 0.8 mg/dl (0.55-1.3); POTASSIUM 3.9 mmol/L (3.5-5.1)
[2022-07-12 13:25] LABS: BILIRUBIN,TOTAL 0.8 mg/dl (0.2-1)
[2022-07-12] MEDS ORDERED: INSULIN (NOVOLOG) ASPART 100 UNITS/ML 10ML VIAL SQ ONE (13:34)
[2022-07-12] MEDS ORDERED: SODIUM CHLORIDE 0.9% 500 ML INFUS.BAG IV ONE (13:42)
[2022-07-12] MEDS ORDERED: INSULIN (NOVOLOG) ASPART 100 UNITS/ML 10ML VIAL ONE (13:45)
== END 2022-07-12 15:50 | disposition home or self-care (01) ==
LOC: FER 12:35
PROC: 3E033NZ Introduction of Analgesics, Hypnotics, Sedatives into Peripheral Vein, Percutaneous Approach (ICD-10-PCS; principal; 2022-07-12)
PROC: 3E013VG Introduction of Insulin into Subcutaneous Tissue, Percutaneous Approach (ICD-10-PCS; 2022-07-12)
DX: R73.9 Hyperglycemia, unspecified (principal); R10.84 Generalized abdominal pain
CPT/HCPCS: 36415; 74177-TC; 80053; 81003; 82272; 82962; 83605; 83690; 85027; 87086; 99285-25; Q9967

== ENCOUNTER 2022-09-21 02:03 | Emergency (ER) | payer OTHER ==
[2022-09-21 02:20] VITALS: BP 144/89; PULSE 93; RESP 18; TEMP 98.4; BMI 30.7
[2022-09-21] MEDS ORDERED: ACETAMINOPHEN 1000 MG/100 ML BAG IVPB ONE (03:00)
[2022-09-21] MEDS ORDERED: ONDANSETRON 4 MG/2 ML VIAL IVPUSH ONE ×2 (03:00→05:54)
[2022-09-21] MEDS ORDERED: SODIUM CHLORIDE 0.9% 500 ML INFUS.BAG IV ONE (03:01)
[2022-09-21] MEDS ORDERED: ACETAMINOPHEN INJECTION 100 ML IVPB ONE (03:29)
[2022-09-21] MEDS ORDERED: ONDANSETRON 4 MG/2 ML VIAL ONE ×2 (03:30→05:57)
[2022-09-21] MEDS ORDERED: FAMOTIDINE 20 MG/50 ML IVPB 20 MG/50 ML MG IVPB ONE ×2 (04:37→04:59)
[2022-09-21] MEDS ORDERED: MAG HYDROX/AL HYDROX/SIMETH 30 ML UNIT-DOSE CUP PO ONE (04:37)
[2022-09-21 04:45] LABS: POTASSIUM 4.1 mmol/L (3.5-5.1)
[2022-09-21 04:48] LABS: CALCIUM 9.3 mg/dL (8.5-10.1)
[2022-09-21 04:49] LABS: ALBUMIN 3.8 g/dl (3.4-5.0); BLOOD UREA NITROGEN 15.2 mg/dL (7-18); MAGNESIUM 1.7 mg/dL (1.8-2.4)
[2022-09-21 04:51] LABS: CREATININE 0.9 mg/dL (0.55-1.3); PHOSPHOROUS 3.6 mg/dL (2.5-4.9)
[2022-09-21 04:53] LABS: BILIRUBIN,TOTAL 1.1 mg/dL (0.2-1); TOT PROT 7.3 g/dl (6.4-8.2)
[2022-09-21] MEDS ORDERED: MAG HYDROX/AL HYDROX/SIMETH 30 ML UNIT-DOSE CUP ONE (04:59)
[2022-09-21 05:03] LABS: HEMATOCRIT 49.5 % (35.4-49); HEMOGLOBIN 16.9 GM/dL (11.7-16.9); MCH 28.9 pg (25.7-33.7); MCHC 34.2 g/dl (32.0-35.9); MEAN CELL VOLUME 84.7 fl (80-96); MEAN PLT VOLUME 10.3 fl (7.5-11.1); PLATELET COUNT 214 10^3/uL (134-434); RBC 5.85 M/mm3 (4.00-5.60); RDW 13.2 % (11.9-15.9); WHITE BLOOD COUNT 21.6 K/mm3 (4.0-10.0)
[2022-09-21] MEDS ORDERED: KCL 10 MEQ IVPB 20 MEQ/200 ML INFUS.BAG IVPB ONE (05:21)
[2022-09-21] MEDS ORDERED: DIPHTH,PERTUSS(ACELL),TET 0.5 ML DISP.SYRIN IM ONE (05:22)
[2022-09-21] MEDS ORDERED: METOCLOPRAMIDE HCL INJECTION 10 MG/2 ML VIAL IVPB ONE (05:50)
[2022-09-21] MEDS ORDERED: LACTATED RINGERS SOLUTION 1000 ML INFUS.BAG IV ONE (05:54)
[2022-09-21] MEDS ORDERED: MAGNESIUM SULF 50% (8.12 MEQ/2 ML-1 GM VIAL) IVPB ONE (05:54)
[2022-09-21] MEDS ORDERED: MAGNESIUM 1GM/D5W - 1 GM/100 ML IVPB IVPB ONE (05:57)
[2022-09-21 08:50] LABS: ANISOCYTOSIS 1+; MACROCYTOSIS 0
== END 2022-09-21 08:24 | disposition home or self-care (01) ==
LOC: JER 02:03
PROC: 3E033GC Introduction of Other Therapeutic Substance into Peripheral Vein, Percutaneous Approach (ICD-10-PCS; principal; 2022-09-21)
PROC: 3E033GC Introduction of Other Therapeutic Substance into Peripheral Vein, Percutaneous Approach (ICD-10-PCS; 2022-09-21)
PROC: 3E033NZ Introduction of Analgesics, Hypnotics, Sedatives into Peripheral Vein, Percutaneous Approach (ICD-10-PCS; 2022-09-21)
PROC: 3E0234Z Introduction of Serum, Toxoid and Vaccine into Muscle, Percutaneous Approach (ICD-10-PCS; 2022-09-21)
DX: R11.2 Nausea with vomiting, unspecified (principal); R10.9 Unspecified abdominal pain; R19.7 Diarrhea, unspecified; E11.65 Type 2 diabetes mellitus with hyperglycemia
CPT/HCPCS: 36415; 71045-TC-FY; 74176-TC; 80053; 83690; 83735; 84100; 84484; 85025; 93005; 93010; 99285-25

== ENCOUNTER 2022-10-24 18:56 | Emergency (ER) | payer OTHER ==
[2022-10-24 19:15] VITALS: BP 136/92; PULSE 90; RESP 16; TEMP 99.1; BMI 29.9
== END 2022-10-24 19:35 | disposition home or self-care (01) ==
LOC: FER 18:56
DX: R05.9 Cough, unspecified (principal); R09.81 Nasal congestion; R07.0 Pain in throat
CPT/HCPCS: 99282-25

== ENCOUNTER 2023-08-02 09:52 | Emergency (ER) | payer OTHER ==
[2023-08-02 10:10] VITALS: BP 138/86; PULSE 92; RESP 17; TEMP 98; BMI 27.8
[2023-08-02] MEDS ORDERED: ACETAMINOPHEN 500 MG TABLET (FP) ONE (11:40)
[2023-08-02] MEDS ORDERED: GABAPENTIN 300 MG CAPSULE ONE (11:41)
[2023-08-02] MEDS: GABAPENTIN 300 MG CAPSULE PO ONE (11:44)
[2023-08-02] MEDS: predniSONE 20 MG TABLET (UD) PO ONE (11:44)
[2023-08-02] MEDS: CYCLOBENZAPRINE HCL 10 MG TABLET (FP) PO ONE (11:44)
[2023-08-02] MEDS: ACETAMINOPHEN 500 MG TABLET (FP) PO ONE ×2 (11:44)
== END 2023-08-02 11:54 | disposition home or self-care (01) ==
LOC: JERFT 09:52
DX: G62.9 Polyneuropathy, unspecified (principal)
CPT/HCPCS: 99283-25

== ENCOUNTER 2023-09-30 05:02 | Day surgery (SDC) | payer OTHER ==
[2023-09-28 12:23] VITALS: BMI 27.1
[2023-09-30] MEDS ORDERED: LIDOCAINE HCL/PF 1% SDV 5ML VIAL ONE (07:36)
[2023-09-30] MEDS ORDERED: DEXAMETHASONE SOD PHOSPHATE 10 MG/1 ML VIAL ONE (07:36)
[2023-09-30] MEDS ORDERED: BUPIVACAINE HCL/PF 0.25% (2.5MG/ML) 10 ML VIAL ONE (07:36)
[2023-09-30] MEDS ORDERED: ACETAMINOPHEN 500 MG TABLET (FP) PO PRN (13:18)
[2023-09-30] MEDS ORDERED: SODIUM CHLORIDE 1,000 ML IV SCH (13:30)
[2023-09-30] MEDS ORDERED: MIDAZOLAM HCL 2 MG/2 ML SINGLE DOSE VIAL ONE (15:19)
[2023-09-30] MEDS: LIDOCAINE HCL 1% PRESERVATIVE FREE - 30ML VIAL IJ ONE (15:29)
[2023-09-30] MEDS: IOHEXOL 180 MG/1 ML ML IJ ONE ×2 (15:32)
[2023-09-30] MEDS: DEXAMETHASONE SOD PHOSPHATE 10 MG/1 ML VIAL IM ONE ×2 (15:34)
[2023-09-30] MEDS: BUPIVACAINE HCL/PF 0.25% (2.5MG/ML) 10 ML VIAL IJ ONE ×2 (15:34)
[2023-09-30 16:06] VITALS: RESP 16; TEMP 97.7
[2023-09-30 16:49] VITALS: BP 126/78; PULSE 78
== END 2023-09-30 16:52 | disposition home or self-care (01) ==
LOC: JASU-SURG 05:02
PROVIDERS: ATTEND Pain Medicine Pain Medicine
PROC: 3E0T33Z Introduction of Anti-inflammatory into Peripheral Nerves and Plexi, Percutaneous Approach (ICD-10-PCS; 2023-09-30)
PROC: 3E0T3BZ Introduction of Anesthetic Agent into Peripheral Nerves and Plexi, Percutaneous Approach (ICD-10-PCS; principal; 2023-09-30 14:15)
DX: G89.4 Chronic pain syndrome (principal)
CPT/HCPCS: 76000-TC-FY; J1100

== ENCOUNTER 2023-12-01 04:14 | Day surgery (SDC) | payer OTHER ==
[2023-11-28 12:28] VITALS: BMI 27.1
[2023-12-01] MEDS ORDERED: LIDOCAINE HCL/PF 1% SDV 5ML VIAL ONE (07:16)
[2023-12-01 09:50] VITALS: RESP 18
[2023-12-01] MEDS: CEFAZOLIN SODIUM 2 GM in DEXTROSE 5%-WATER 100 ML IVPB ONE (11:48)
[2023-12-01] MEDS: LIDOCAINE HCL 1% PRESERVATIVE FREE - 30ML VIAL IJ ONE ×3 (12:51)
[2023-12-01] MEDS: LIDOCAINE HCL/PF 2% SDV 5ML VIAL INF ONE ×2 (13:02)
[2023-12-01 15:46] VITALS: BP 140/88; PULSE 75; TEMP 97.5
[2023-12-01] MEDS ORDERED: ACETAMINOPHEN 500 MG TABLET (FP) PO PRN (21:20)
== END 2023-12-01 14:30 | disposition home or self-care (01) ==
LOC: JASU-SURG 04:14
PROVIDERS: ATTEND Pain Medicine Pain Medicine
PROC: 00HV3MZ Insertion of Neurostimulator Lead into Spinal Cord, Percutaneous Approach (ICD-10-PCS; principal; 2023-12-01 10:45)
DX: G57.72 Causalgia of left lower limb (principal); E08.40 Diabetes mellitus due to underlying condition with diabetic neuropathy, unspecified; Z79.84 Long term (current) use of oral hypoglycemic drugs
CPT/HCPCS: 63650; C1778; 76000-TC-FY; 82962; C1897